=== PATIENT | male | born 1955 | race Caucasian/White ===

== ENCOUNTER 2016-08-15 15:47 | Inpatient (IN) | payer MEDICARE, OTHER ==
--- NOTE | ~2016-08-15 | HP ---
History And Physical [facility] [address] [place]. [address] NAME: BYRON ELIZABETH : 57 STATUS : ADM IN [facility]#: [id number] AGE: 61 ADM/REG DATE : 08/15/16 MR#: [id number] REPORT SERV DATE: 08/15/16 DICTATED BY: MARY SHANNON DATE: 08/15/16 REPORT STATUS : Draft TRANSCRIBED BY: MODL DATE: 08/15/16 DATE OF ADMISSION: 08/15/2016 CHIEF COMPLAINT: Worsening dyspnea. HISTORY OF PRESENTING ILLNESS: Mr. Byron Elizabeth is a 61-year-old male with multiple medical history including heart failure with preserved EF, hypertension, hyperlipidemia, diabetes type 2, morbid obesity, who presented to the hospital as a direct admit from primary care physician's office. The patient was seen by primary care physician today. At the time of presentation, the patient was noted to be hypoxic, saturating at 91% on 6 L of oxygen. He had also noted to have gained 10 pounds from his last visit. On physical exam today, the patient was noted to be severely volume overload. Given these findings, primary care physician transferred the patient over to [facility] for further management. At the time of my evaluation, the patient stated that for the past two weeks he has been having worsening shortness of breath. He states that he becomes dyspneic with minimal exertion. He also stated that he is compliant with his medications. However, he has not had increased urine output despite being compliant with his Lasix. He denies any chest pain, any palpitation. Denies any fever, any chills. He denies any lightheadedness or dizziness. No fevers or chills. REVIEW OF SYSTEMS: A 14-point review of system was performed. All systems were negative except as noted in the HPI. PAST MEDICAL HISTORY: Include heart failure with preserved EF; hypertension; hyperlipidemia; diabetes type 2; GERD; morbid obesity; obstructive sleep apnea; bipolar disorder; coronary artery disease, status post drug-eluting stent placement in the past. FAMILY HISTORY: Significant for diabetes, hypertension, throat cancer, lung cancer, myocardial infarction, elevated cholesterol, and arthritis. The patient states his father of lymphoma at age 73. Mother of cerebral aneurysm at age 83. SOCIAL HISTORY: The patient currently . Lives at home with his . The patient reports a 12-pack year smoking history. He states that he quit smoking at age 82. Denies any illicit drug use. Denies any alcohol use. SURGICAL HISTORY: No significant surgical history. ALLERGIES: THE PATIENT REPORTS NO KNOWN DRUG ALLERGIES. HOME MEDICATIONS: Reviewed and continued. Home medications include aspirin 81 mg p.o. daily, atorvastatin 40 mg p.o. daily, baclofen 10 mg p.o. three times a day, carvedilol 25 mg p.o. daily, Zyrtec 10 mg p.o. twice a day, clonazepam 2 mg p.o. three times a day p.r.n., clonidine 0.2 mg p.o. daily, vitamin B12 of 1000 mg p.o. daily, Nexium 40 mg p.o. twice a day, Lasix 40 mg p.o. twice a day, gabapentin 900 mg p.o. three times a day, insulin 250 units subcu with breakfast and supper and 260 units subcu with lunch, metformin 1000 mg p.o. History And Physical [address] [address] NAME: BYRON ELIZABETH : 57 STATUS : ADM IN PAT#: [id number] AGE: 61 ADM/REG DATE : 08/15/16 MR#: [id number] REPORT SERV DATE: 08/15/16 DICTATED BY: MARY SHANNON DATE: 08/15/16 REPORT STATUS : Draft TRANSCRIBED BY: JAKE DATE: 08/15/16 twice a day, Robaxin 500 mg p.o. three times a day, morphine 30 mg p.o. twice a day, Nystatin one application topically p.r.n., Percocet one tab p.o. four times a day p.r.n., potassium chloride 10 mEq p.o. daily, ranitidine 300 mg p.o. twice a day, trazodone 100 mg p.o. at bedtime, and valsartan 320 mg p.o. daily. LABS: No labs available at this time. ASSESSMENT AND PLAN: 1. Heart failure with preserved ejection fraction, last ejection fraction was 55%. The patient currently decompensated with evidence of volume overload. 2. We will start patient on IV Lasix, strict I's and O's, daily weight. 3. Hypertension, uncontrolled. On presentation, the patient's systolic blood pressure was greater than 190 status post 10 mg IV dose of hydralazine. We will restart the patient on home medications and titrate as needed. 4. Hyperlipidemia. The patient is currently on high-intensity statin therapy. We will continue current management. 5. Diabetes type 2. Per primary care physician, patient controlled on current insulin regimen. We will continue current insulin regimen and obtain A1c. 6. Obstructive sleep apnea. We will place patient on CPAP at bedside. 7. Morbid obesity. BMI 54.4. Of note, the patient does meet criteria given his significant morbid obesity and complications from diabetes. The patient does meet criteria for bariatric surgery evaluation. This should be kept in mind especially in the outpatient setting for the patient to be referred for evaluation and this procedure would help alleviate and improve his morbidity. 8. Code status. The patient will remain full code at this time. 9. DVT prophylaxis. Subcu heparin. JE/MODL Mary Shannon MD / [id number] CC: MD Jennifer Teixeira
--- NOTE | ~2016-08-15 | DS ---
Discharge Summary [facility] [address] [place]. [address] NAME: CARLOS ELIZABETH : 57 STATUS : DIS IN PAT#: [id number] AGE: 61 ADM/REG DATE : 08/15/16 MR#: [id number] REPORT SERV DATE: 08/25/16 DICTATED BY: DATE: REPORT STATUS : Draft TRANSCRIBED BY: MODL DATE: 08/24/16 ADMISSION DATE: 08/15/2016 DISCHARGE DATE: 08/24/2016 DISCHARGE DIAGNOSES: 1. Heart failure with preserved ejection fraction of 55%. 2. CO2 narcosis. 3. Hypoventilation syndrome with obstructive sleep apnea due to morbid obesity with body mass index of 52.4. 4. Acute kidney injury on chronic kidney disease. 5. Hypertension. 6. Diabetes mellitus, type 2. 7. Chronic pain. 8. Anxiety. 9. Hyperlipidemia. PROCEDURES AND IMAGING: On 08/17/2016, CT of the brain without contrast due to change in mental status showed motion degraded exam despite repeated images with no acute intracranial pathology identified. On 08/19/2016, portable chest x-ray showed shallow inspiration, otherwise no acute cardiopulmonary abnormalities. On 08/20/2016, venous Doppler of right upper extremity showed no DVT. On 08/21/2016, portable chest x-ray showed cardiomegaly with shallow inspiration and no acute cardiopulmonary abnormality. HOSPITAL COURSE: This is a 61-year-old white male who was admitted with complaint of worsening shortness of breath. The patient has extensive medical history including morbid obesity, heart failure with preserved ejection fraction, hypertension, hyperlipidemia, and diabetes type 2. Please see admission H and P by Dr. Cox on 08/15/2016. The patient does have a history of use of CPAP, which he was noncompliant with and BiPAP, which he was also noncompliant with. The patient has had a recent sleep study in the last 6 months, and is awaiting arrival of machinery after Medicare approved. The patient has had multiple arterial blood gases with his PCO2 being elevated into the 80s and PO2 in the 50s on O2 at 4 L nasal cannula, and his O2 sat 87.9. The patient then was placed on BiPAP settings of 20 and 8 with a PCO2 of 68 and PO2 of 49, with O2 sat of 83.5. During his stay, the patient has been off and on BiPAP to the point where the patient has now become noncompliant using BiPAP at bedtime and is just using O2 3 to 4 L during the day. The patient's blood sugars have been elevated in the high 300s and low 400s during his stay, and his U-500 insulin has been adjusted to 0.3 mL, which is 150 units at breakfast and lunch, and 0.25 mL, which is 125 units before supper. This is approximately half the dose of what he was using prior to admission. The patient did have acute kidney injury with creatinine elevated to 2.45 and GFR down to 28 during his stay. All kidney impacting drugs were discontinued at that time and has been gradually re-added upon resolution. Acute kidney injury appears to be related to his aggressive diuresis and has slowly resolved after discontinuing medications, and decreasing his Lasix to 20 mg b.i.d. p.o. His current labs: Sodium is 144, potassium is 4.0, chloride is 98, bicarb is 41.4. BUN is 50, creatinine is 1.27, GFR 71, glucose 73, calcium 9.3, magnesium 2.0, WBC 6.1, hemoglobin Discharge Summary [address] [address] NAME: CARLOS ELIZABETH : 57 STATUS : DIS IN PAT#: [id number] AGE: 61 ADM/REG DATE : 08/15/16 MR#: [id number] REPORT SERV DATE: 08/25/16 DICTATED BY: DATE: REPORT STATUS : Draft TRANSCRIBED BY: MODL DATE: 08/24/16 12.0, hematocrit 38.9. His A1c upon admission was 8.5. His BNP upon admission was 68 and his ammonia was 27. The patient's blood pressure has fluctuated from 193/83 and 210/94, down to 93/50. It has stabilized in the last 72 hours between 120 to 160 over 60s to 70s. The patient has had extensive diabetic education as well as his participating. The patient expresses extreme desire to be compliant with his medication and understands that he has been taking half of the dose that he normally takes at home due to his controlled diet. The patient has mentioned that he enjoys going out to eat at buffets frequently and understands that portion control and food choices are important. The patient has been getting out of bed and sitting in the chair with assistance from physical therapy, where the patient now feels comfortable doing it with a walker. During his stay, we have decreased the patient's Neurontin down to 600 mg every 8 hours due to his GFR. The patient's current blood sugars have been 70s, 115, 125, and 147. Extensive discussion was made with Dr. Collins for discharge insulin orders due to the patient's lower insulin needs while in the hospital, and she will follow up with the patient within two weeks. The patient also has expressed a problem with sore mouth, questionable thrush. The patient has been given a Rx for MD Dacosta and has been using it for the last few days while in the hospital with improvement. The patient's anxiety had been well controlled with his clonazepam and has only been using it one to two times a day. PHYSICAL EXAMINATION: VITAL SIGNS: Blood pressure 131/60, O2 saturation 95% on 3 L, temperature 97.9, heart rate is 82, respirations are 18. HEENT: Head is atraumatic, normocephalic. Pupils are equal, round, reactive to light and accommodation. Sclerae are clear and nonicteric. NECK: Supple with no obvious thyromegaly or lymphadenopathy. Neck veins are flat. CARDIAC: S1 and S2 with no obvious murmurs, rubs, or gallops. LUNGS: Clear to auscultation with normal respiratory effort with lung sounds being distant due to large body habitus. ABDOMEN: Soft and nontender with active bowel sounds in all four quadrants. Last bowel movement was 08/23/2016. No palpable organomegaly. The patient has obese abdomen with large pannus. EXTREMITIES: The patient has nonpitting bilateral lower extremity edema with no obvious clubbing or cyanosis. Pulses are present and equal bilaterally. MUSCULOSKELETAL: The patient moves all extremities x4. He is ambulatory with a walker. SKIN: Warm and dry with normal color and turgor. NEUROPSYCH: The patient is alert and oriented x4, pleasant, and cooperative. DISCHARGE DIET: 1800-calorie ADA diet. DISCHARGE MEDICATIONS: Aspirin 81 mg daily; atorvastatin 40 mg daily; Coreg 25 mg twice daily, hold for systolic blood pressure less than 110; vitamin B12, 1000 mcg daily; Lasix 40 mg p.o. twice daily; gabapentin 600 mg three times daily; Humulin R U-500, 0.25 mL, which equals 125 units before supper, insulin U-500 Humulin R 0.3 mL subcu before breakfast and lunch; Zyrtec 10 mg p.o. twice daily; Robaxin 500 mg three times daily; MS Contin 30 mg p.o. twice daily; MD Dacosta Mouthwash 10 mL after meals and at bedtime swish and spit x10 days; [place]-3 fatty acid 1000 mg daily; Nexium 40 mg twice daily; potassium chloride 10 mEq daily; Flomax 0.4 mg daily; trazodone 100 mg daily; Catapres 0.2 mg q.a.m. and 0.4 mg at bedtime, Discharge Summary [facility] [address] [place]. [address] NAME: CARLOS ELIZABETH : 57 STATUS : DIS IN PAT#: [id number] AGE: 61 ADM/REG DATE : 08/15/16 MR#: [id number] REPORT SERV DATE: 08/25/16 DICTATED BY: DATE: REPORT STATUS : Draft TRANSCRIBED BY: MODL DATE: 08/24/16 hold if systolic blood pressure less than 110; Diovan 320 mg daily; Combivent Respimat inhaled q.6 hours p.r.n. shortness of breath; Nitrostat 0.4 mg sublingually p.r.n. chest pain; clonazepam 2 mg three times daily p.r.n. anxiety; nystatin powder p.r.n. to groin and under arm rash; Percocet 10/325 four times a day as needed for pain; omeprazole 20 mg twice daily. ALLERGIES: THE PATIENT HAS NO KNOWN DRUG ALLERGIES. DISCHARGE INSTRUCTIONS: The patient is to follow up with his PCP, Dr. Jennifer Persaud in 7 [address] Dr. Sainz with [facility], next week on . Dr. Collins's office with [facility] will be calling him Saturday with an appointment within the next 2 weeks. Should the patient have any more difficulty with shortness of breath or any other severe symptoms, he is to call his PCP or present to the ER. About 45 minutes has been spent coordinating discharge care of this patient including face- to-face encounter and summarization of the discharge. AURA/MODL Liliana Mcghee NP / [id number] CC: MD SELENA Herrera TRACY
--- NOTE | ~2016-08-15 | PUL ---
[facility] [address] [place]. [address] NAME: CARLOS ELIZABETH : 57 STATUS : DIS IN PAT#: [id number] AGE: 61 ADM/REG DATE : 08/15/16 MR#: [id number] REPORT SERV DATE: 08/24/16 DICTATED BY: LALY SEGURA DATE: 08/24/16 REPORT STATUS : Draft TRANSCRIBED BY: MODL DATE: 08/24/16 PULMONARY FUNCTION TEST START DATE OF TESTIN08/21/2016 END DATE OF TESTIN08/22/2016 COMMENTS: Per respiratory therapy, study conducted with the patient breathing supplemental oxygen at a flow rate of 3 L/minute. RN increased oxygen to 4 L/minute and then back to 3 L/minute. (Per available information), this study was conducted primarily while the patient was breathing supplemental oxygen at a flow rate of 3 L/minute. RESULTS: Total valid sampling time 7 hours 8 minutes and 27 seconds. Total time with an oxygen saturation less than 88%, 0. Oxygen desaturation event index 0.7. IMPRESSION: There was no significant desaturation during this study conducted primarily with the patient breathing supplemental oxygen at a flow rate of 3 L/minute. The oxygen desaturation event index was normal. PS/JAKE Laly Segura M.D. / [id number] CC: Joey Mtz MD
--- NOTE | ~2016-08-15 | HP ---
History And Physical [facility] [address] [place]. [address] NAME: CARLOS ELIZABETH : 57 STATUS : ADM IN [facility]#: [id number] AGE: 61 ADM/REG DATE : 08/15/16 MR#: [id number] REPORT SERV DATE: 08/15/16 DICTATED BY: MARY SHANNON DATE: 08/15/16 REPORT STATUS : Draft TRANSCRIBED BY: MODL DATE: 08/15/16 DATE OF ADMISSION: 08/15/2016 CHIEF COMPLAINT: Worsening dyspnea. HISTORY OF PRESENT ILLNESS: The patient is a 61-year-old male with multiple medical history including heart failure with preserved EF, hypertension, hyperlipidemia, diabetes type 2, morbid obesity, who presented to his physician's office secondary to worsening dyspnea. The patient was directly transferred to [facility] from physician's office for further management. History obtained from the patient and . The patient states that over the past few weeks he has noticed decreased exercise tolerance, reporting becoming dyspneic with minimal exertion, states that his symptoms progressively worsened. Upon presentation to his doctor's office today, the patient was noted to have low O2 saturation and noted to be in severe volume overload. The patient was therefore transferred to [facility] for further management. At the time of my evaluation of the patient, the patient states that he is compliant with his medications. He is on Lasix which he takes, but he states that he has not had any increase urinary output recently on his Lasix dose. He also stated increased exercise intolerance stating that he is unable to essentially walk that he ambulates using a wheelchair. He denied any sick contacts. No lightheadedness or dizziness. No fevers. No chills. Other than THE severe shortness of breath, he also complained of symptoms consistent with diabetic neuropathy. REVIEW OF SYSTEMS: A 14-point review of system was performed. All systems were negative except as noted in the HPI. PAST MEDICAL HISTORY: 1. Heart failure with reduced EF. 2. Obstructive sleep apnea. 3. Bipolar disorder disease. 4. GERD. 5. Coronary artery disease, status post stent placement in 2011. 6. Morbid obesity. 7. Diabetes. 8. Hypertension. 9. Hyperlipidemia. FAMILY HISTORY: Significant for: 1. Diabetes. 2. Hypertension. 3. Throat cancer. 4. Lung cancer. 5. Hyperlipidemia. 6. Myocardial infarction. FAMILY HISTORY: The patient states that father from lymphoma at age 73. Mother History And Physical [address] [place]. [address] NAME: CARLOS ELIZABETH : 57 STATUS : ADM IN [facility]#: [id number] AGE: 61 ADM/REG DATE : 08/15/16 MR#: [id number] REPORT SERV DATE: 08/15/16 DICTATED BY: MARY SHANNON DATE: 08/15/16 REPORT STATUS : Draft TRANSCRIBED BY: JAKE DATE: 08/15/16 from a cerebral aneurysm at age 84. SOCIAL HISTORY: The patient is currently , lives at home with his , has one adopted son in group home. He is a former smoker, reports a 12 pack year smoking history, quit at age 22. He denies any alcohol use or any illicit drug use. ALLERGIES: THE PATIENT HAS NO KNOWN DRUG ALLERGIES. PAST SURGICAL HISTORY: No significant surgical history. HOME MEDICATIONS: 1. Aspirin 81 mg p.o. daily. 2. Atorvastatin 40 mg p.o. daily. 3. Baclofen 10 mg p.o. three times a day. 4. Coreg 25 mg p.o. twice a day. 5. Zyrtec 10 mg p.o. twice a day. 6. Clonazepam 2 mg p.o. three times a day p.r.n. for anxiety. 7. Clonidine 0.2 mg p.o. daily. 8. Clonidine 0.4 mg p.o. at bedtime. 9. Vitamin B12 1000 mcg p.o. daily. 10.Nexium 40 mg p.o. twice a day. 11.Lasix 40 mg p.o. twice a day. 12.Gabapentin 900 mg p.o. three times daily. 13.Concentrated insulin 250 units subcu with breakfast and supper. 14.Concentrated insulin 260 units subcu with lunch. 15.Metformin 1000 mg p.o. twice a day. 16.Robaxin 500 mg p.o. three times a day. 17.Morphine 30 mg p.o. twice a day. 18.Nitroglycerin 0.4 mg subcu p.r.n. 19.Potassium chloride 10 mEq p.o. daily. 20.Zantac 300 mg p.o. twice a day. 21.Trazodone 100 mg p.o. at bedtime. 22.Percocet one tab p.o. four times a day p.r.n. 23.Nystatin Powder one application topically daily p.r.n. 24.Valsartan 320 mg p.o. daily. DICTATION ENDS HERE MERVAT/JAKE Mary Shannon MD / [id number] History And Physical [address] [address] NAME: CARLOS ELIZABETH : 57 STATUS : ADM IN [facility]#: [id number] AGE: 61 ADM/REG DATE : 08/15/16 MR#: [id number] REPORT SERV DATE: 08/15/16 DICTATED BY: MARY SHANNON DATE: 08/15/16 REPORT STATUS : Draft TRANSCRIBED BY: JAKE DATE: 08/15/16 CC: MD Jennifer Teixeira MD
[~2016-08-15 15:47] MED LIST: ALEVE220 MG PO; AMB10 PO; AMLODIPINE BESYLATE PO; ASAB PO; CARDURA1 MG PO; CAT1 PO; COREG12 PO; COREG25 PO; CYANO1000T PO; DEMA20 PO; DEPAKOTEER PO; DIOV160 PO; DSS PO; EFFIENT10 PO; ELIQUIS 5 MG TAB5 MG PO; ENDOCET1 TA3 PO; FISH-EPA1000 MG PO; GENERLAC PO; GLUCOPHAGE1000 MG PO; HUMULIN R U-500 SC; HUMULIN R500 UNIT/1 SC; HUMULIN500CONC SC; KLONO1 PO; KLOR-CON 1010 MEQ PO; KLOR-CON M1010 MEQ PO; L40 PO; LEVEMIR SC; LIOR10 PO; LIPITOR40 PO; LOFIBRA160 MG PO; LOP25 PO; LORTAB10 PO; MAGOX4 PO; METHOC500B PO; MIRALAXPKT PO; MSIMMR15 PO; NEUR300 PO; NEXIUM40 PO; NITROSTAT0.4 MG SL; NOVOLOG SC; NYSTOP100000 MG TOP; OXYCOD PO; PENNSAID; PERCOCET1 TA4 PO; RANITIDINE300 MG PO; SENTAB PO; SYMBICORT 160/41 INH INH; TRAZ100 PO; TRAZODONE150 MG PO; TRICOR48 PO; VENTOLIN HFA INH; VITAMIN D2000 UNIT PO; VITAMIN D31000 UNIT PO; ZYRTEC ALLGY10 MG PO
[2016-08-15] MEDS ORDERED: ZANTAC300 MG PO (16:54)
[2016-08-15] MEDS ORDERED: NEXIUM40 PO (16:54)
[2016-08-15] MEDS ORDERED: ASAB PO (16:54)
[2016-08-15] MEDS ORDERED: COMBIVENT RESPIM4 GM PO (16:54)
[2016-08-15] MEDS ORDERED: NITROSTAT0.4 MG SL (16:55)
[2016-08-15] MEDS ORDERED: FISH-EPA1000 MG PO (16:55)
[2016-08-15] MEDS ORDERED: NEUR300 PO (16:55)
[2016-08-15] MEDS ORDERED: HUMULIN500CONC SC ×2 (16:57→16:58)
[2016-08-15] MEDS ORDERED: KLOR-CON M1010 MEQ PO (16:59)
[2016-08-15] MEDS ORDERED: COREG25 PO (16:59)
[2016-08-15] MEDS ORDERED: GLUCOPHAGE1000 MG PO (16:59)
[2016-08-15] MEDS ORDERED: CAT2 PO ×2 (17:00)
[2016-08-15] MEDS ORDERED: KLONO2 PO (17:00)
[2016-08-15] MEDS ORDERED: LIOR10 PO (17:01)
[2016-08-15] MEDS ORDERED: TRAZ100 PO (17:01)
[2016-08-15] MEDS ORDERED: NYSTATPOW TOP (17:01)
[2016-08-15] MEDS ORDERED: METHOC500B PO (17:01)
[2016-08-15] MEDS ORDERED: PERCOCET 10/3251 TAB PO (17:02)
[2016-08-15] MEDS ORDERED: DIOVAN320 MG PO (17:02)
[2016-08-15] MEDS ORDERED: MSCONTIN PO (17:02)
[2016-08-15] MEDS ORDERED: ZYRTEC ALLGY10 MG PO (17:02)
[2016-08-15] MEDS ORDERED: LIPITOR40 PO (17:03)
[2016-08-15] MEDS ORDERED: CYANO1000T PO (17:03)
[2016-08-15] MEDS ORDERED: L40 PO (17:03)
[2016-08-15 21:48] LABS: BASOPHILS 0.4 %; BASOPHILS ABSOLUTE 0.03 10/3/uL (0.0-0.16); EOSINOPHILS 2.9 %; EOSINOPHILS ABSOLUTE 0.21 10/3/uL (0.0-0.53); HEMATOCRIT 34.7 % (40.0-51.0); HEMOGLOBIN 10.6 g/dL (13.6-17.8); IMMATURE GRANULOCYTES 0.5 %; IMMATURE GRANULOCYTES ABSOLUTE 0.04 10/3/uL (0.0-0.11); LYMPHOCYTES 15.4 %; LYMPHOCYTES ABSOLUTE 1.13 10/3/uL (0.67-4.30); MEAN CORPUS HGB CONC 30.5 g/dL (32.0-36.0); MEAN CORPUSCULAR HEMOGLOB 26.7 pg (26.0-34.0); MEAN CORPUSCULAR VOLUME 87.4 fL (80-100); MEAN PLATELET VOLUME 10.2 fL (9.2-13.0); MONOCYTES 10.1 %; MONOCYTES ABSOLUTE 0.74 10/3/uL (0.21-1.20); NEUTROPHILS 70.7 %; NEUTROPHILS ABSOLUTE 5.19 10/3/uL (2.02-8.40); PLATELET COUNT 230 10/3/uL (150-400); RBC DISTRIBUTION WIDTH 14.3 % (12.0-16.0); RED CELL COUNT 3.97 10/6/uL (4.7-6.1)
[2016-08-15 21:50] LABS: MANUAL DIFF NO %; WHITE BLOOD CELLS 7.3 10/3/uL (4.5-10.5)
[2016-08-15 22:11] LABS: A/G RATIO 0.9 (0.7-1.9); ALBUMIN 3.2 G/DL (3.5-5.0); BUN (BLOOD UREA NITROGEN) 25 MG/DL (6-23); CALCIUM, SERUM 8.8 MG/DL (8.5-10.4); CHLORIDE, SERUM 95 MMOL/L (96-112); CO2 (CARBON DIOXIDE) 37 MMOL/L (24-34); CREATININE 1.24 MG/DL (0.70-1.30); FREE T4 1.27 NG/DL (0.76-1.46); GFR AFRICAN AMERICAN 73 ML/MIN (>=60); GFR NON AFRICAN AMERICAN 63 ML/MIN (>=60); GLOBULIN 3.5 G/DL (2.5-4.1); GLUCOSE, SERUM 269 MG/DL (60-99); PHOSPHORUS, SERUM 2.3 MG/DL (2.5-4.5); POTASSIUM, SERUM 4.1 MMOL/L (3.5-5.3); SGOT(AST) 18 U/L (5-40); SGPT(ALT) 26 U/L (5-65); SODIUM, SERUM 139 MMOL/L (135-148); TOTAL BILIRUBIN 0.7 MG/DL (0-1.2); TOTAL PROTEIN 6.7 G/DL (6.0-8.5); ULTRASENSITIVE TSH 0.604 MCIU/ML (0.358-3.740)
[2016-08-15 22:12] LABS: ALKALINE PHOSPHATASE 88 U/L (45-117)
[2016-08-16 05:57] LABS: HEMOGLOBIN 10.4 g/dL (13.6-17.8); MEAN CORPUS HGB CONC 31.5 g/dL (32.0-36.0); MEAN CORPUSCULAR HEMOGLOB 27.3 pg (26.0-34.0); MEAN CORPUSCULAR VOLUME 86.6 fL (80-100); MEAN PLATELET VOLUME 11.2 fL (9.2-13.0); PLATELET COUNT 273 10/3/uL (150-400); RBC DISTRIBUTION WIDTH 14.6 % (12.0-16.0); RED CELL COUNT 3.81 10/6/uL (4.7-6.1); WHITE BLOOD CELLS 5.2 10/3/uL (4.5-10.5)
[2016-08-16 06:04] LABS: MANUAL DIFF YES %
[2016-08-16 06:53] LABS: BAND NEUTROPHILS 3 %; BASOPHILS 1 %; BASOPHILS ABSOLUTE (CALC) 0.05 10/3/uL (0.0-0.16); EOSINOPHILS 1 %; EOSINOPHILS ABSOLUTE (CALC) 0.05 10/3/uL (0.0-0.53); LYMPHOCYTES 20 %; LYMPHOCYTES ABSOLUTE (CALC) 1.04 10/3/uL (0.67-4.30); MONOCYTES 3 %; MONOCYTES ABSOLUTE (CALC) 0.16 10/3/uL (0.21-1.20); PLATELET ESTIMATE ADQ (ADEQUATE); POLYCHROMASIA 1+ (2-5/OIF) (0-1/OIF); SEGMENTED NEUTROPHIL (0) 72 %; TOTAL NUCLEATED CELLS 100
[2016-08-16 07:32] LABS: CALCIUM, SERUM 8.5 MG/DL (8.5-10.4); CHLORIDE, SERUM 90 MMOL/L (96-112); POTASSIUM, SERUM 4.1 MMOL/L (3.5-5.3); SODIUM, SERUM 138 MMOL/L (135-148)
[2016-08-16 08:03] LABS: ALBUMIN 3.1 G/DL (3.5-5.0); ALKALINE PHOSPHATASE 84 U/L (45-117); BUN (BLOOD UREA NITROGEN) 25 MG/DL (6-23); CO2 (CARBON DIOXIDE) 39 MMOL/L (24-34); CREATININE 1.18 MG/DL (0.70-1.30); GFR AFRICAN AMERICAN 77 ML/MIN (>=60); GFR NON AFRICAN AMERICAN 67 ML/MIN (>=60); GLOBULIN 3.2 G/DL (2.5-4.1); GLUCOSE, SERUM 303 MG/DL (60-99); SGOT(AST) 17 U/L (5-40); SGPT(ALT) 26 U/L (5-65); TOTAL BILIRUBIN 0.8 MG/DL (0-1.2); TOTAL PROTEIN 6.3 G/DL (6.0-8.5)
[2016-08-16 13:18] LABS: GLYCOHEMOGLOBIN (HbA1c) 8.5 % (4.7-6.1)
[2016-08-17 05:05] LABS: BASOPHILS 0.4 %; BASOPHILS ABSOLUTE 0.03 10/3/uL (0.0-0.16); EOSINOPHILS 2.7 %; EOSINOPHILS ABSOLUTE 0.22 10/3/uL (0.0-0.53); HEMATOCRIT 35.5 % (40.0-51.0); IMMATURE GRANULOCYTES 0.4 %; IMMATURE GRANULOCYTES ABSOLUTE 0.03 10/3/uL (0.0-0.11); LYMPHOCYTES 16.3 %; LYMPHOCYTES ABSOLUTE 1.33 10/3/uL (0.67-4.30); MEAN CORPUSCULAR HEMOGLOB 27.5 pg (26.0-34.0); MEAN CORPUSCULAR VOLUME 88.8 fL (80-100); MEAN PLATELET VOLUME 10.3 fL (9.2-13.0); NEUTROPHILS 69.2 %; NEUTROPHILS ABSOLUTE 5.64 10/3/uL (2.02-8.40); PLATELET COUNT 204 10/3/uL (150-400); RBC DISTRIBUTION WIDTH 14.5 % (12.0-16.0)
[2016-08-17 05:10] LABS: MANUAL DIFF NO %; WHITE BLOOD CELLS 8.2 10/3/uL (4.5-10.5)
[2016-08-17 05:15] LABS: A/G RATIO 0.9 (0.7-1.9); ALKALINE PHOSPHATASE 79 U/L (45-117); CALCIUM, SERUM 8.7 MG/DL (8.5-10.4); CHLORIDE, SERUM 91 MMOL/L (96-112); CO2 (CARBON DIOXIDE) 39 MMOL/L (24-34); CREATININE 1.48 MG/DL (0.70-1.30); GFR AFRICAN AMERICAN 59 ML/MIN (>=60); GFR NON AFRICAN AMERICAN 51 ML/MIN (>=60); GLOBULIN 3.3 G/DL (2.5-4.1); POTASSIUM, SERUM 4.2 MMOL/L (3.5-5.3); SGOT(AST) 18 U/L (5-40); SGPT(ALT) 26 U/L (5-65); SODIUM, SERUM 141 MMOL/L (135-148); TOTAL PROTEIN 6.3 G/DL (6.0-8.5)
[2016-08-17 05:23] LABS: BUN (BLOOD UREA NITROGEN) 31 MG/DL (6-23); GLUCOSE, SERUM 201 MG/DL (60-99)
[2016-08-18 06:35] LABS: BASOPHILS 0.1 %; BASOPHILS ABSOLUTE 0.01 10/3/uL (0.0-0.16); EOSINOPHILS 2.3 %; HEMATOCRIT 37.8 % (40.0-51.0); HEMOGLOBIN 11.4 g/dL (13.6-17.8); IMMATURE GRANULOCYTES 0.3 %; IMMATURE GRANULOCYTES ABSOLUTE 0.03 10/3/uL (0.0-0.11); LYMPHOCYTES 14.8 %; LYMPHOCYTES ABSOLUTE 1.28 10/3/uL (0.67-4.30); MEAN CORPUS HGB CONC 30.2 g/dL (32.0-36.0); MEAN CORPUSCULAR HEMOGLOB 27.2 pg (26.0-34.0); MEAN CORPUSCULAR VOLUME 90.2 fL (80-100); MEAN PLATELET VOLUME 10.4 fL (9.2-13.0); MONOCYTES 11.7 %; MONOCYTES ABSOLUTE 1.01 10/3/uL (0.21-1.20); NEUTROPHILS 70.8 %; PLATELET COUNT 210 10/3/uL (150-400); RBC DISTRIBUTION WIDTH 14.7 % (12.0-16.0); RED CELL COUNT 4.19 10/6/uL (4.7-6.1); WHITE BLOOD CELLS 8.6 10/3/uL (4.5-10.5)
[2016-08-18 06:41] LABS: MANUAL DIFF NO %
[2016-08-18 06:46] LABS: A/G RATIO 0.8 (0.7-1.9); ALBUMIN 2.9 G/DL (3.5-5.0); ALKALINE PHOSPHATASE 83 U/L (45-117); CALCIUM, SERUM 8.6 MG/DL (8.5-10.4); CHLORIDE, SERUM 93 MMOL/L (96-112); CO2 (CARBON DIOXIDE) 40 MMOL/L (24-34); GLOBULIN 3.7 G/DL (2.5-4.1); GLUCOSE, SERUM 201 MG/DL (60-99); POTASSIUM, SERUM 4.3 MMOL/L (3.5-5.3); SGOT(AST) 12 U/L (5-40); SGPT(ALT) 21 U/L (5-65); SODIUM, SERUM 139 MMOL/L (135-148); TOTAL PROTEIN 6.6 G/DL (6.0-8.5)
[2016-08-18 06:47] LABS: BUN (BLOOD UREA NITROGEN) 46 MG/DL (6-23); CREATININE 2.41 MG/DL (0.70-1.30); GFR AFRICAN AMERICAN 33 ML/MIN (>=60); GFR NON AFRICAN AMERICAN 28 ML/MIN (>=60); TOTAL BILIRUBIN 1.6 MG/DL (0-1.2)
[2016-08-18 08:07] LABS: BE (BASE EXCESS) 15.4 MEQ/L (0 +/- 2.5); CARBOXYHEMOGLOBIN 1.8 % (0-3); HCO3 (ACTUAL BICARBONATE) 44.6 MEQ/L (23-27); HEMOBLOGIN CONTENT 11.8 G/DL (14-18); INSTRUMENT SERIAL # 8083; METHEMOGLOBIN 0.3 % (0-3); O2 CONTENT 14.3 VOL% (18-24); PCO2 (CO2 TENSION) 83 MMHG (35-45); PO2 (O2 TENSION) 58 MMHG (79-93); pH 7.35 (7.37-7.43)
[2016-08-18 08:08] LABS: ALLENS TEST Pos; OPERATOR ID 14472; SAMPLE Arterial
[2016-08-18 10:39] LABS: ALLENS TEST Pos; BE (BASE EXCESS) 16.3 MEQ/L (0 +/- 2.5); BIPAP 20/8 cm.H2O; HCO3 (ACTUAL BICARBONATE) 43.7 MEQ/L (23-27); HEMOBLOGIN CONTENT 11.8 G/DL (14-18); INSTRUMENT SERIAL # 8083; METHEMOGLOBIN 0.3 % (0-3); O2 CONTENT 13.5 VOL% (18-24); OPERATOR ID 14472; PCO2 (CO2 TENSION) 68 MMHG (35-45); PO2 (O2 TENSION) 49 MMHG (79-93); SAMPLE Arterial; pH 7.43 (7.37-7.43)
[2016-08-18 17:56] LABS: ALLENS TEST Pos; BE (BASE EXCESS) 16.8 MEQ/L (0 +/- 2.5); BIPAP 20/8 cm.H2O; CARBOXYHEMOGLOBIN 1.5 % (0-3); HCO3 (ACTUAL BICARBONATE) 43.2 MEQ/L (23-27); HEMOBLOGIN CONTENT 11.5 G/DL (14-18); INSTRUMENT SERIAL # 8083; METHEMOGLOBIN 0.3 % (0-3); O2 CONTENT 14.7 VOL% (18-24); OPERATOR ID 14472; PCO2 (CO2 TENSION) 62 MMHG (35-45); PO2 (O2 TENSION) 65 MMHG (79-93); SAMPLE Arterial; pH 7.46 (7.37-7.43)
[2016-08-18 21:22] LABS: ASCORBIC ACID (UR NOT ORDER) NEG (NEG); BILIRUBIN, URINE NEGATIVE (NEG); KETONE, URINE NEGATIVE (NEG); LEUKOCYTE ESTERASE(NOT OR NEG (NEG); WBC (NOT ORDERED) (RFLEX) 4 (0-5)
[2016-08-19 05:37] LABS: ALLENS TEST Pos; BE (BASE EXCESS) 16.2 MEQ/L (0 +/- 2.5); BIPAP 20/8 cm.H2O; CARBOXYHEMOGLOBIN 1.4 % (0-3); HCO3 (ACTUAL BICARBONATE) 42.7 MEQ/L (23-27); INSTRUMENT SERIAL # 8083; METHEMOGLOBIN 0.3 % (0-3); O2 CONTENT 15.6 VOL% (18-24); OPERATOR ID 334499; PCO2 (CO2 TENSION) 61 MMHG (35-45); PO2 (O2 TENSION) 72 MMHG (79-93); SAMPLE Arterial; pH 7.46 (7.37-7.43)
[2016-08-19 05:59] LABS: BASOPHILS 0.1 %; BASOPHILS ABSOLUTE 0.01 10/3/uL (0.0-0.16); EOSINOPHILS 0.7 %; EOSINOPHILS ABSOLUTE 0.05 10/3/uL (0.0-0.53); HEMATOCRIT 37.7 % (40.0-51.0); HEMOGLOBIN 11.8 g/dL (13.6-17.8); IMMATURE GRANULOCYTES 0.6 %; IMMATURE GRANULOCYTES ABSOLUTE 0.04 10/3/uL (0.0-0.11); LYMPHOCYTES 7.7 %; LYMPHOCYTES ABSOLUTE 0.53 10/3/uL (0.67-4.30); MEAN CORPUS HGB CONC 31.3 g/dL (32.0-36.0); MEAN CORPUSCULAR HEMOGLOB 27.4 pg (26.0-34.0); MEAN CORPUSCULAR VOLUME 87.7 fL (80-100); MEAN PLATELET VOLUME 10.2 fL (9.2-13.0); MONOCYTES 6.4 %; MONOCYTES ABSOLUTE 0.44 10/3/uL (0.21-1.20); NEUTROPHILS 84.5 %; NEUTROPHILS ABSOLUTE 5.84 10/3/uL (2.02-8.40); PLATELET COUNT 217 10/3/uL (150-400); RBC DISTRIBUTION WIDTH 14.3 % (12.0-16.0); WHITE BLOOD CELLS 6.9 10/3/uL (4.5-10.5)
[2016-08-19 06:00] LABS: MANUAL DIFF NO %
[2016-08-19 06:16] LABS: A/G RATIO 0.8 (0.7-1.9); ALBUMIN 3.1 G/DL (3.5-5.0); ALKALINE PHOSPHATASE 90 U/L (45-117); BUN (BLOOD UREA NITROGEN) 45 MG/DL (6-23); CALCIUM, SERUM 8.9 MG/DL (8.5-10.4); CHLORIDE, SERUM 98 MMOL/L (96-112); CO2 (CARBON DIOXIDE) 35 MMOL/L (24-34); GFR AFRICAN AMERICAN 63 ML/MIN (>=60); GFR NON AFRICAN AMERICAN 54 ML/MIN (>=60); GLOBULIN 3.7 G/DL (2.5-4.1); GLUCOSE, SERUM 318 MG/DL (60-99); POTASSIUM, SERUM 4.5 MMOL/L (3.5-5.3); SGPT(ALT) 18 U/L (5-65); SODIUM, SERUM 142 MMOL/L (135-148); TOTAL BILIRUBIN 1.5 MG/DL (0-1.2); TOTAL PROTEIN 6.8 G/DL (6.0-8.5)
[2016-08-19 06:17] LABS: SGOT(AST) 15 U/L (5-40)
[2016-08-20 05:18] LABS: BASOPHILS 0.4 %; BASOPHILS ABSOLUTE 0.03 10/3/uL (0.0-0.16); HEMATOCRIT 35.5 % (40.0-51.0); HEMOGLOBIN 11.1 g/dL (13.6-17.8); IMMATURE GRANULOCYTES 0.3 %; IMMATURE GRANULOCYTES ABSOLUTE 0.02 10/3/uL (0.0-0.11); LYMPHOCYTES 14.6 %; LYMPHOCYTES ABSOLUTE 0.98 10/3/uL (0.67-4.30); MEAN CORPUS HGB CONC 31.3 g/dL (32.0-36.0); MEAN CORPUSCULAR HEMOGLOB 27.3 pg (26.0-34.0); MEAN CORPUSCULAR VOLUME 87.4 fL (80-100); MEAN PLATELET VOLUME 9.9 fL (9.2-13.0); MONOCYTES 11.4 %; MONOCYTES ABSOLUTE 0.77 10/3/uL (0.21-1.20); NEUTROPHILS 70.3 %; NEUTROPHILS ABSOLUTE 4.73 10/3/uL (2.02-8.40); PLATELET COUNT 213 10/3/uL (150-400); RED CELL COUNT 4.06 10/6/uL (4.7-6.1); WHITE BLOOD CELLS 6.7 10/3/uL (4.5-10.5)
[2016-08-20 05:19] LABS: MANUAL DIFF NO %
[2016-08-20 05:35] LABS: A/G RATIO 0.7 (0.7-1.9); ALBUMIN 2.8 G/DL (3.5-5.0); ALKALINE PHOSPHATASE 79 U/L (45-117); CALCIUM, SERUM 8.9 MG/DL (8.5-10.4); CHLORIDE, SERUM 96 MMOL/L (96-112); CO2 (CARBON DIOXIDE) 37 MMOL/L (24-34); CREATININE 1.18 MG/DL (0.70-1.30); GFR AFRICAN AMERICAN 77 ML/MIN (>=60); GFR NON AFRICAN AMERICAN 67 ML/MIN (>=60); GLOBULIN 3.9 G/DL (2.5-4.1); GLUCOSE, SERUM 317 MG/DL (60-99); POTASSIUM, SERUM 3.7 MMOL/L (3.5-5.3); SGOT(AST) 12 U/L (5-40); SGPT(ALT) 16 U/L (5-65); SODIUM, SERUM 142 MMOL/L (135-148); TOTAL BILIRUBIN 1.4 MG/DL (0-1.2); TOTAL PROTEIN 6.7 G/DL (6.0-8.5)
[2016-08-20 05:38] LABS: BUN (BLOOD UREA NITROGEN) 34 MG/DL (6-23)
[2016-08-20 10:04] LABS: ALLENS TEST Pos; BE (BASE EXCESS) 11.5 MEQ/L (0 +/- 2.5); CARBOXYHEMOGLOBIN 1.4 % (0-3); DEVICE NC; HCO3 (ACTUAL BICARBONATE) 35.6 MEQ/L (23-27); HEMOBLOGIN CONTENT 12.3 G/DL (14-18); INSTRUMENT SERIAL # 8083; METHEMOGLOBIN 0.3 % (0-3); O2 CONTENT 15.3 VOL% (18-24); PCO2 (CO2 TENSION) 45 MMHG (35-45); PO2 (O2 TENSION) 60 MMHG (79-93); SAMPLE Arterial; pH 7.52 (7.37-7.43)
[2016-08-21 04:06] LABS: ALLENS TEST Pos; BE (BASE EXCESS) 13.7 MEQ/L (0 +/- 2.5); CARBOXYHEMOGLOBIN 0.6 % (0-3); DEVICE NC; HCO3 (ACTUAL BICARBONATE) 41.4 MEQ/L (23-27); HEMOBLOGIN CONTENT 11.2 G/DL (14-18); INSTRUMENT SERIAL # 8083; METHEMOGLOBIN 0.3 % (0-3); OPERATOR ID 35190; PCO2 (CO2 TENSION) 71 MMHG (35-45); PO2 (O2 TENSION) 89 MMHG (79-93); SAMPLE Arterial; pH 7.38 (7.37-7.43)
[2016-08-21 05:41] LABS: BASOPHILS 0.2 %; BASOPHILS ABSOLUTE 0.02 10/3/uL (0.0-0.16); EOSINOPHILS 4.6 %; EOSINOPHILS ABSOLUTE 0.41 10/3/uL (0.0-0.53); HEMOGLOBIN 11.2 g/dL (13.6-17.8); IMMATURE GRANULOCYTES 0.2 %; IMMATURE GRANULOCYTES ABSOLUTE 0.02 10/3/uL (0.0-0.11); LYMPHOCYTES 17.8 %; LYMPHOCYTES ABSOLUTE 1.59 10/3/uL (0.67-4.30); MEAN CORPUS HGB CONC 30.3 g/dL (32.0-36.0); MEAN CORPUSCULAR VOLUME 89.2 fL (80-100); MEAN PLATELET VOLUME 10.3 fL (9.2-13.0); MONOCYTES 14.1 %; MONOCYTES ABSOLUTE 1.26 10/3/uL (0.21-1.20); NEUTROPHILS 63.1 %; NEUTROPHILS ABSOLUTE 5.64 10/3/uL (2.02-8.40); PLATELET COUNT 220 10/3/uL (150-400); RBC DISTRIBUTION WIDTH 14.6 % (12.0-16.0); RED CELL COUNT 4.15 10/6/uL (4.7-6.1); WHITE BLOOD CELLS 8.9 10/3/uL (4.5-10.5)
[2016-08-21 05:43] LABS: MANUAL DIFF NO %
[2016-08-21 10:02] LABS: POTASSIUM, SERUM 3.8 MMOL/L (3.5-5.3); SGOT(AST) 15 U/L (5-40); SGPT(ALT) 16 U/L (5-65); SODIUM, SERUM 143 MMOL/L (135-148)
[2016-08-21 12:35] LABS: A/G RATIO 0.9 (0.7-1.9); ALBUMIN 3.2 G/DL (3.5-5.0); ALKALINE PHOSPHATASE 79 U/L (45-117); CALCIUM, SERUM 8.8 MG/DL (8.5-10.4); CHLORIDE, SERUM 99 MMOL/L (96-112); CO2 (CARBON DIOXIDE) 39 MMOL/L (24-34); GLOBULIN 3.7 G/DL (2.5-4.1); TOTAL PROTEIN 6.9 G/DL (6.0-8.5)
[2016-08-21 12:41] LABS: BUN (BLOOD UREA NITROGEN) 51 MG/DL (6-23); CREATININE 2.19 MG/DL (0.70-1.30); GFR AFRICAN AMERICAN 37 ML/MIN (>=60); GFR NON AFRICAN AMERICAN 32 ML/MIN (>=60); GLUCOSE, SERUM 106 MG/DL (60-99); TOTAL BILIRUBIN 0.9 MG/DL (0-1.2)
[2016-08-21 16:42] LABS: CALCIUM, SERUM 8.6 MG/DL (8.5-10.4); CHLORIDE, SERUM 98 MMOL/L (96-112); CO2 (CARBON DIOXIDE) 35 MMOL/L (24-34); CREATININE 2.42 MG/DL (0.70-1.30); GFR AFRICAN AMERICAN 32 ML/MIN (>=60); GFR NON AFRICAN AMERICAN 28 ML/MIN (>=60); POTASSIUM, SERUM 3.9 MMOL/L (3.5-5.3); SODIUM, SERUM 141 MMOL/L (135-148)
[2016-08-21 16:44] LABS: BUN (BLOOD UREA NITROGEN) 61 MG/DL (6-23); GLUCOSE, SERUM 204 MG/DL (60-99)
[2016-08-22 04:56] LABS: BASOPHILS 0.3 %; BASOPHILS ABSOLUTE 0.02 10/3/uL (0.0-0.16); EOSINOPHILS ABSOLUTE 0.31 10/3/uL (0.0-0.53); HEMATOCRIT 35.9 % (40.0-51.0); IMMATURE GRANULOCYTES 0.1 %; IMMATURE GRANULOCYTES ABSOLUTE 0.01 10/3/uL (0.0-0.11); LYMPHOCYTES 18.9 %; LYMPHOCYTES ABSOLUTE 1.47 10/3/uL (0.67-4.30); MANUAL DIFF NO %; MEAN CORPUS HGB CONC 30.6 g/dL (32.0-36.0); MEAN CORPUSCULAR HEMOGLOB 27.6 pg (26.0-34.0); MEAN CORPUSCULAR VOLUME 90.2 fL (80-100); MEAN PLATELET VOLUME 10.3 fL (9.2-13.0); MONOCYTES 11.8 %; MONOCYTES ABSOLUTE 0.92 10/3/uL (0.21-1.20); NEUTROPHILS 64.9 %; NEUTROPHILS ABSOLUTE 5.05 10/3/uL (2.02-8.40); PLATELET COUNT 229 10/3/uL (150-400); RBC DISTRIBUTION WIDTH 14.6 % (12.0-16.0); RED CELL COUNT 3.98 10/6/uL (4.7-6.1); WHITE BLOOD CELLS 7.8 10/3/uL (4.5-10.5)
[2016-08-22 05:19] LABS: CALCIUM, SERUM 8.8 MG/DL (8.5-10.4); CHLORIDE, SERUM 101 MMOL/L (96-112); CO2 (CARBON DIOXIDE) 35 MMOL/L (24-34); CREATININE 2.45 MG/DL (0.70-1.30); GFR AFRICAN AMERICAN 32 ML/MIN (>=60); GFR NON AFRICAN AMERICAN 28 ML/MIN (>=60); SODIUM, SERUM 144 MMOL/L (135-148)
[2016-08-22 05:23] LABS: BUN (BLOOD UREA NITROGEN) 69 MG/DL (6-23); GLUCOSE, SERUM 67 MG/DL (60-99)
[2016-08-23 06:35] LABS: BASOPHILS 0.6 %; BASOPHILS ABSOLUTE 0.04 10/3/uL (0.0-0.16); EOSINOPHILS ABSOLUTE 0.35 10/3/uL (0.0-0.53); HEMATOCRIT 37.1 % (40.0-51.0); HEMOGLOBIN 11.4 g/dL (13.6-17.8); IMMATURE GRANULOCYTES 0.4 %; IMMATURE GRANULOCYTES ABSOLUTE 0.03 10/3/uL (0.0-0.11); LYMPHOCYTES 23.6 %; LYMPHOCYTES ABSOLUTE 1.65 10/3/uL (0.67-4.30); MEAN CORPUS HGB CONC 30.7 g/dL (32.0-36.0); MEAN CORPUSCULAR HEMOGLOB 27.2 pg (26.0-34.0); MEAN CORPUSCULAR VOLUME 88.5 fL (80-100); MEAN PLATELET VOLUME 10.7 fL (9.2-13.0); MONOCYTES 13.9 %; MONOCYTES ABSOLUTE 0.97 10/3/uL (0.21-1.20); NEUTROPHILS 56.5 %; NEUTROPHILS ABSOLUTE 3.96 10/3/uL (2.02-8.40); PLATELET COUNT 211 10/3/uL (150-400); RBC DISTRIBUTION WIDTH 14.5 % (12.0-16.0); RED CELL COUNT 4.19 10/6/uL (4.7-6.1)
[2016-08-23 06:39] LABS: CALCIUM, SERUM 9.2 MG/DL (8.5-10.4); CHLORIDE, SERUM 101 MMOL/L (96-112); CO2 (CARBON DIOXIDE) 36 MMOL/L (24-34); POTASSIUM, SERUM 4.7 MMOL/L (3.5-5.3); SODIUM, SERUM 145 MMOL/L (135-148)
[2016-08-23 06:42] LABS: BUN (BLOOD UREA NITROGEN) 58 MG/DL (6-23); CREATININE 1.34 MG/DL (0.70-1.30); GFR AFRICAN AMERICAN 66 ML/MIN (>=60); GFR NON AFRICAN AMERICAN 57 ML/MIN (>=60); GLUCOSE, SERUM 96 MG/DL (60-99); MANUAL DIFF NO %
[2016-08-24 04:20] LABS: BASOPHILS 0.5 %; BASOPHILS ABSOLUTE 0.03 10/3/uL (0.0-0.16); EOSINOPHILS 5.2 %; EOSINOPHILS ABSOLUTE 0.32 10/3/uL (0.0-0.53); HEMATOCRIT 38.9 % (40.0-51.0); IMMATURE GRANULOCYTES 0.2 %; IMMATURE GRANULOCYTES ABSOLUTE 0.01 10/3/uL (0.0-0.11); LYMPHOCYTES 25.4 %; LYMPHOCYTES ABSOLUTE 1.55 10/3/uL (0.67-4.30); MEAN CORPUS HGB CONC 30.8 g/dL (32.0-36.0); MEAN CORPUSCULAR HEMOGLOB 27.5 pg (26.0-34.0); MEAN PLATELET VOLUME 10.2 fL (9.2-13.0); MONOCYTES 13.6 %; MONOCYTES ABSOLUTE 0.83 10/3/uL (0.21-1.20); NEUTROPHILS 55.1 %; NEUTROPHILS ABSOLUTE 3.36 10/3/uL (2.02-8.40); PLATELET COUNT 209 10/3/uL (150-400); RBC DISTRIBUTION WIDTH 13.9 % (12.0-16.0); RED CELL COUNT 4.37 10/6/uL (4.7-6.1); WHITE BLOOD CELLS 6.1 10/3/uL (4.5-10.5)
[2016-08-24 04:22] LABS: MANUAL DIFF NO %
[2016-08-24 04:31] LABS: BUN (BLOOD UREA NITROGEN) 50 MG/DL (6-23); CALCIUM, SERUM 9.3 MG/DL (8.5-10.4); CHLORIDE, SERUM 98 MMOL/L (96-112); CO2 (CARBON DIOXIDE) 38 MMOL/L (24-34); CREATININE 1.27 MG/DL (0.70-1.30); GFR AFRICAN AMERICAN 71 ML/MIN (>=60); GFR NON AFRICAN AMERICAN 61 ML/MIN (>=60); GLUCOSE, SERUM 73 MG/DL (60-99); SODIUM, SERUM 144 MMOL/L (135-148)
[2016-08-24] MEDS ORDERED: MOUTH WASH PO (15:22)
[2016-08-24] MEDS ORDERED: FLOMAX4 PO (15:23)
[2016-12-29] MEDS ORDERED: KLONO1 PO (18:29)
[2016-12-29] MEDS ORDERED: LIOR10 PO (18:29)
[2016-12-29] MEDS ORDERED: ASAB PO (18:29)
[2016-12-29] MEDS ORDERED: COMBIVENT RESPIM4 GM INH (18:30)
[2016-12-29] MEDS ORDERED: FERROUS SULF325 M1 PO (18:31)
[2016-12-29] MEDS ORDERED: L40 PO (18:31)
[2016-12-29] MEDS ORDERED: NEUR300 PO (18:31)
[2016-12-29] MEDS ORDERED: NEXIUM40 PO (18:31)
[2016-12-29] MEDS ORDERED: HUMULIN500CONC SC ×2 (18:33→18:34)
[2016-12-29] MEDS ORDERED: GLUCOPHAGE1000 MG PO (18:36)
[2016-12-29] MEDS ORDERED: LAMICTAL25 PO (18:36)
[2016-12-29] MEDS ORDERED: MSCONTIN PO (18:37)
[2016-12-29] MEDS ORDERED: NITROSTAT0.4 MG SL (18:37)
[2016-12-29] MEDS ORDERED: PERCOCET 10/3251 TAB PO (18:37)
[2016-12-29] MEDS ORDERED: KDUR10 PO (18:37)
[2016-12-29] MEDS ORDERED: DIOVAN320 MG PO (18:38)
[2016-12-29] MEDS ORDERED: TRAZ100 PO (18:38)
[2016-12-29] MEDS ORDERED: CRESTOR20 MG PO (18:38)
[2016-12-29] MEDS ORDERED: METHOC500B PO (18:39)
[2016-12-30] MEDS ORDERED: VENTOLIN HFA INH (15:21)
[2017-01-07] MEDS ORDERED: NEUR600 PO (21:16)
[2017-01-07] MEDS ORDERED: TRAZ100 PO (21:20)
[2017-01-07] MEDS ORDERED: PAIN TOP (21:20)
[2017-01-07] MEDS ORDERED: DIOVAN320 MG PO (21:20)
[2017-01-07] MEDS ORDERED: MSCONTIN PO (21:21)
[2017-01-07] MEDS ORDERED: PERCOCET 10/3251 TAB PO (21:22)
[2017-01-07] MEDS ORDERED: FERROUS SULF325 M1 PO (21:23)
[2017-01-07] MEDS ORDERED: LIOR10 PO (21:23)
[2017-01-07] MEDS ORDERED: L40 PO (21:24)
[2017-01-07] MEDS ORDERED: LAMICTAL25 PO (21:24)
[2017-01-07] MEDS ORDERED: VENTOLIN HFA INH (21:25)
[2017-01-07] MEDS ORDERED: FISH-EPA1000 MG PO (21:25)
[2017-01-07] MEDS ORDERED: GLUCOPHAGE1000 MG PO (21:25)
[2017-01-07] MEDS ORDERED: NYSTATPOW TOP (21:26)
[2017-01-07] MEDS ORDERED: NEXIUM40 PO (21:26)
[2017-01-07] MEDS ORDERED: HUMULIN500CONC SC ×2 (21:27→21:28)
[2017-01-07] MEDS ORDERED: KLOR-CON 1010 MEQ PO (21:28)
[2017-01-07] MEDS ORDERED: NITROSTAT0.4 MG SL (21:29)
[2017-01-07] MEDS ORDERED: METHOC500B PO (21:29)
[2017-01-07] MEDS ORDERED: COMBIVENT RESPIM4 GM INH (21:30)
[2017-01-07] MEDS ORDERED: ASAB PO (21:31)
[2017-01-07] MEDS ORDERED: KLONO2 PO (21:33)
== END 2016-08-24 16:42 | disposition home health service (06) | DRG 291 ==
LOC: 2SO 15:47
PROVIDERS: Hospitalist; Nurse Practitioner Family
DX: I50.33 Acute on chronic diastolic (congestive) heart failure (principal); J96.02 Acute respiratory failure with hypercapnia; E66.2 Morbid (severe) obesity with alveolar hypoventilation; Z68.43 Body mass index [BMI] 50.0-59.9, adult; N17.9 Acute kidney failure, unspecified; E66.01 Morbid (severe) obesity due to excess calories; E78.5 Hyperlipidemia, unspecified; N18.9 Chronic kidney disease, unspecified; E11.9 Type 2 diabetes mellitus without complications; K21.9 Gastro-esophageal reflux disease without esophagitis; G47.33 Obstructive sleep apnea (adult) (pediatric); F31.9 Bipolar disorder, unspecified; I12.9 Hypertensive chronic kidney disease with stage 1 through stage 4 chronic kidney disease, or unspecified chronic kidney disease; I25.10 Atherosclerotic heart disease of native coronary artery without angina pectoris; G89.29 Other chronic pain; F41.9 Anxiety disorder, unspecified; Z95.5 Presence of coronary angioplasty implant and graft; Z82.49 Family history of ischemic heart disease and other diseases of the circulatory system; Z82.61 Family history of arthritis; Z80.9 Family history of malignant neoplasm, unspecified; Z87.891 Personal history of nicotine dependence
CPT/HCPCS: 36600; 70450; 71010; 80048; 80053; 81001; 82140; 82805; 82962; 83036; 83735; 83880; 84100; 84439; 84443; 85025; 93971; 94640; 94660; 94762; 97110-GP; 97116-GP; 97162-GP; 97530-GP; A9270-GY; G8978-CK-GP; G8979-CJ-GP; J0360; J1940; J3486

== ENCOUNTER 2016-09-18 15:22 | Inpatient (IN) | payer MEDICARE, OTHER ==
--- NOTE | ~2016-09-18 | DS ---
Discharge Summary [facility] [address] [place]. [address] NAME: CARLOS ELIZABETH : 57 STATUS : DIS IN PAT#: [id number] AGE: 61 ADM/REG DATE : 09/19/16 MR#: [id number] REPORT SERV DATE: 09/24/16 DICTATED BY: DATE: REPORT STATUS : Draft TRANSCRIBED BY: MODL DATE: 09/22/16 ADMISSION DATE: 09/19/2016 DISCHARGE DATE: 09/22/2016 ADDENDUM: The previously dictated discharge summary was dictated on September 04. The patient was admitted to the [facility], attending Dr. Chester Null. DISCHARGE DIAGNOSES: 1. Acute on chronic hypercapnic respiratory failure, longstanding history of sleep apnea and obesity hypoventilation syndrome with CPAP noncompliance. Initiated on nocturnal BiPAP here. The patient to follow up with fire equipment operator, Dr. Zuniga, regarding outpatient CPAP or BiPAP therapy to be provided by [facility]. 2. Acute cor pulmonale, resolved. 3. Hypertensive emergency, resolved. 4. Insulin-dependent diabetes mellitus type 2, uncontrolled. Treated with basal and bolus Levemir and NovoLog here. To resume U500 once he is discharged back to home. 5. History of diastolic congestive heart failure. 6. History of coronary artery disease with prior stent. 7. Bipolar disorder. 8. Chronic pain syndrome and narcotic dependence. 9. Degenerative disk disease. 10.Morbid obesity. HOSPITAL COURSE: Please refer the previously dictated discharge summary on 09/21. The patient remained hospitalized until 09/22, at which point the three-midnight rule for his insurance had been satisfied, and he was discharged to [facility] for ongoing nocturnal BiPAP and physical rehabilitation prior to being discharged home. controller operations and hr manager at [facility] will need to follow up with [facility] regarding the delivery of his home CPAP or BiPAP machine, and the patient will need to follow up closely with Dr. Zuniga for any additional titrations. The patient is being discharged on Levemir and NovoLog and may return to taking high doses of U-500 insulin after he has been discharged to home. He will need to follow up closely with his PCP and pharmacy operations coordinator regarding this. CHRIS/JAKE Chester Null M.D. / [id number] CC: Chester Null M.D. Discharge Summary [address] [address] NAME: CARLOS ELIZABETH : 57 STATUS : DIS IN PAT#: [id number] AGE: 61 ADM/REG DATE : 09/19/16 MR#: [id number] REPORT SERV DATE: 09/24/16 DICTATED BY: DATE: REPORT STATUS : Draft TRANSCRIBED BY: MODL DATE: 09/22/16 Jennifer Persaud Jr., M.D. Ramya Embar Srinivasan, MD
--- NOTE | ~2016-09-18 | DS ---
Discharge Summary [facility] [address] [place]. [address] NAME: CARLOS ELIZABETH : 57 STATUS : DIS IN PAT#: [id number] AGE: 61 ADM/REG DATE : 09/19/16 MR#: [id number] REPORT SERV DATE: 09/24/16 DICTATED BY: DATE: REPORT STATUS : Draft TRANSCRIBED BY: MODL DATE: 09/21/16 ADMISSION DATE: 09/19/2016 DISCHARGE DATE: ANTICIPATED DATE OF DISCHARGE: 09/22/2016 [facility], Dr. Chester Null. DISCHARGE DIAGNOSES: 1. Acute on chronic hypercapnic respiratory failure-longstanding history of obstructive sleep apnea and obesity hypoventilation syndrome and longstanding history of CPAP noncompliance. For home CPAP versus BiPAP, per coffee grinder Dr. Samson Zuniga. 2. Acute cor pulmonale.-status post diuresis. 3. Hypertensive emergency-briefly requiring Cardene drip. Resolved, with medications in oral antihypertensive regimen. 4. Insulin-dependent diabetes mellitus type 2-uncontrolled with last hemoglobin A1c 8.5. Utilizing an outpatient regimen of U-500. Controlled on Levemir and NovoLog this admission. 5. History of diastolic congestive heart failure. 6. History of coronary artery disease with prior cardiac stent. 7. Bipolar disorder. 8. Chronic pain syndrome and narcotic dependence. 9. Degenerative disk disease. 10.Generalized weakness-for additional physical rehabilitation. 11.Right upper lobe pulmonary nodules with recommendation for repeat noncontrast CT chest in one year. IMAGIN. Portable chest x-ray, 09/18/2016 for shortness of breath shows cardiomegaly, lungs clear. 2. Brain CT without contrast 09/18/2016 for vertigo, nausea, vomiting shows unremarkable noncontrast head CT. No acute intracranial pathology. 3. CTA chest, 09/18/2016 for shortness of breath shows no CTA evidence of pulmonary embolus. Enlarged main pulmonary artery consistent with CT evidence of pulmonary hypertension. Borderline cardiomegaly. Minor subsegmental atelectasis in the posterior right lung base with no acute cardiopulmonary disease. Indeterminate noncalcified pulmonary nodules, right upper lobe measuring 4 and 5 mm respectively with a benign appearance. 4. A CT abdomen and pelvis without contrast on 09/18/2016 for nausea and vomiting shows moderate dense coronary artery calcifications in the LAD. Nonspecific hepatomegaly and hepatic steatosis, similar to prior exam. Status post cholecystectomy. Diffuse infiltration of subcutaneous fat planes along the right flank and right lateral abdominal wall. Correlation with clinical exam requested. PERTINENT LABS: Initial blood gas showed pH 7.27, pCO2 of 91, pO2 of 116 on oxygen Discharge Summary [id number] [place]. [address] NAME: CARLOS ELIZABETH : 57 STATUS : DIS IN PAT#: [id number] AGE: 61 ADM/REG DATE : 09/19/16 MR#: [id number] REPORT SERV DATE: 09/24/16 DICTATED BY: DATE: REPORT STATUS : Draft TRANSCRIBED BY: MODL DATE: 09/21/16 saturations 98% on BiPAP. White blood cell count was normal this admission. Hemoglobin was slightly low between 10.5 and 11. Platelets were normal. Coagulation studies normal. Kidney functioning, normal. Liver enzymes, normal. Serum acetone, negative. BNP 81. Troponin x2 negative. Procalcitonin negative. Lactic acid level negative. TSH 0.279. Hemoglobin A1c 8.5 in August 2016. Blood cultures x2 negative. Nasal swab was MRSA positive and MSSA positive. BRIEF HISTORY: For full details, please see the previously dictated history of present illness by Dr. Barry Blackwell. This is a chronically ill 61-year-old white male with long- standing history of obstructive sleep apnea and obesity hypoventilation syndrome. He has been noncompliant with his CPAP for several years. He recently has been seeing a new coffee grinder, Dr. Zuniga, who has arranged for outpatient CPAP or BiPAP therapy, and the patient was currently in the process of obtaining the machine, awaiting insurance approvals. The patient was brought to the emergency department on the 09/19/2016 with shortness of breath, weakness, and because he was difficult to arouse. Initial blood gas revealed CO2 narcosis and the patient was placed on BiPAP. Other pertinent findings in the emergency department included nausea, vomiting, diarrhea, and uncontrolled blood pressure with systolic pressures initially 210 over diastolic 110. The patient's sugars were also uncontrolled in the emergency department. Request was made to have the patient admitted to the Hospitalist Service. HOSPITAL COURSE: The patient was admitted to the [facility] under my service. I saw him the same day as admission, first thing in the morning, for re-evaluation of the uncontrolled blood pressure. He was able to be weaned off his Cardene drip that day, with adjustment in some of his oral medications and transdermal clonidine patch. The patient's hypercapnia corrected rapidly, and he was able to be weaned off BiPAP to just p.r.n. and nocturnal use within the first 24 hours of admission. He did appear to have slight volume overload clinically with 3+ edema in the lower extremities and was placed on IV diuretics and then eventually transitioned to oral. For his diabetes, initial sugars were in excess of 400. He uses a regimen of U-500 at home which was 125 units before supper and 150 units with breakfast and lunch. Rather than continue these dosages, for concerns of the patient's safety and safety of administration, he was managed with a regimen of Levemir and NovoLog here. He was requiring 60 units of Levemir twice a day and 25 units of NovoLog plus sliding scale subcu q.a.c. three times a day to keep his blood sugars less than 200. The nausea, vomiting, and diarrhea subsided as the patient's blood pressure was controlled. We attempted to send stool for studies, but his bowel movements formed before those could be obtained. He was able to be transferred out of the [facility] on the second morning of hospitalization, at which point, his Junior catheter was discontinued and he was transitioned to oral diuretics. His diet was advanced and a Physical Therapy evaluation was obtained. They recommended the patient go to a skilled facility for rehabilitation prior to return home. The patient had gone to [facility] in the past and elected to be referred back to [facility]. They have a bed available and the expected date of transfer is 09/22/2016 after the patient has spent his third midnight here in the hospital. Discharge Summary [address] [place]. [address] NAME: CARLOS ELIZABETH : 57 STATUS : DIS IN PAT#: [id number] AGE: 61 ADM/REG DATE : 09/19/16 MR#: [id number] REPORT SERV DATE: 09/24/16 DICTATED BY: DATE: REPORT STATUS : Draft TRANSCRIBED BY: MODL DATE: 09/21/16 The patient is unsure whether or not he is going to be able to tolerate BiPAP. Limiting factors have included nasal congestion and claustrophobia. We are going to trial Afrin and give him a dose of his Ativan prior to BiPAP usage to see if this helps. DISCHARGE DISPOSITION: The patient will be discharged to [facility] in the morning for additional rehabilitation before returning home. Regarding diet, he should adhere to an 1800 K calorie ADA, sodium restricted, 2 L fluid restricted diet. He needs to use BiPAP at current settings q.h.s. and during any daytime naps. He can also utilize oxygen by nasal cannula 2 to 4 L titrated to maintain oxygen saturations greater than 88% when he is not sleeping. Activity will be as directed by the physical therapist at the receiving facility. He needs to follow up with Dr. Zuniga and with Ary regarding his home BiPAP or CPAP prior to discharge to home. He also needs to keep any previously scheduled followup appointments with primary care provider, Jennifer Persaud, and senior chemist Dr. Collins. DISCHARGE MEDICATIONS: Include, 1. Norvasc 5 mg p.o. daily. 2. Aspirin 81 mg p.o. daily. 3. Lipitor 40 mg p.o. at bedtime. 4. Baclofen 10 mg p.o. three times daily. 5. Coreg 25 mg p.o. twice a day. 6. B12 of 1000 mcg p.o. daily. 7. Pepcid 20 mg p.o. daily. 8. Lasix 40 mg p.o. twice a day at 8 in the morning and 1 p.m. 9. Neurontin 300 mg p.o. three times a day. 10.NovoLog level 3 sliding scale subcu q.a.c. and q.h.s. 11.Claritin 10 mg p.o. daily. 12.Robaxin 500 mg p.o. three times a day. 13.MS Contin 15 mg p.o. twice a day-this was decreased from his prior home dosage of 30 mg twice a day for sedation and hypercapnia. 14.Protonix 40 mg p.o. before breakfast. 15.Potassium 10 mEq p.o. daily. 16.Trazodone 50 mg p.o. at bedtime. 17.Diovan 320 mg p.o. daily. 18.Catapres patch 0.2 mg topical weekly. 19.DuoNebs 3 mL inhaled four times a day as needed for shortness of breath. 20.Tylenol 650 mg p.o. every 4 hours as needed for pain. 21.Sublingual nitroglycerin 0.4 mg as needed. 22.Topical nystatin applied to rash daily as needed. 23.Percocet 5 mg/325 mg one tablet p.o. every 4 hours as needed-this was decreased from his home dose of 10 mg/325 mg-for hypercapnia and sedation. 24.Klonopin 2 mg p.o. every 4 hours as needed for anxiety and q.h.s. p.r.n. BiPAP tolerance. Discharge Summary [address] [address] NAME: CARLOS ELIZABETH : 57 STATUS : DIS IN PAT#: [id number] AGE: 61 ADM/REG DATE : 09/19/16 MR#: [id number] REPORT SERV DATE: 09/24/16 DICTATED BY: DATE: REPORT STATUS : Draft TRANSCRIBED BY: MODL DATE: 09/21/16 25.NovoLog 25 units subcu q.a.c. t.i.d. 26.Levemir 60 units subcu b.i.d. 27.Afrin 2 sprays q. nostril q.h.s. prior to BiPAP use. 40 minutes was spent in completion of the discharge. CHRIS/JAKE Chester Null M.D. / [id number] CC: Constantine Corley MD John Boldt Jr., M.D. [facility] MD Nahomy Alba MD
--- NOTE | ~2016-09-18 | HP ---
History And Physical [address] [facility] [place]. [address] NAME: CARLOS ELIZABETH : 57 STATUS : ADM IN [facility]#: [id number] AGE: 61 ADM/REG DATE : 09/19/16 MR#: [id number] REPORT SERV DATE: 09/19/16 DICTATED BY: BARRY DUARTE DATE: 09/19/16 REPORT STATUS : Draft TRANSCRIBED BY: MODL DATE: 09/19/16 DATE OF ADMISSION: 09/19/2016 CHIEF COMPLAINT: Shortness of breath and weakness. HISTORY OF PRESENT ILLNESS: This is a 61-year-old morbidly obese male with a history of diabetes mellitus, hypertension, and morbid obesity, who comes to the emergency room at [facility] [place] with the above-mentioned complaint. History is obtained from the patient and reviewing data available on the [employer] system. According to available data, Mr. Elizabeth was in his usual state of health until yesterday in the evening when he became short of breath and this progressively worsened. In the morning, his woke him up, but he could not even get out of bed. The patient lives in [place], [place] and EMS was summoned to bring him over here. In the emergency room, he initially had mild hypercapnic respiratory failure, and while he was being evaluated in the emergency room, the patient started having respiratory distress. An arterial blood gas was done again, which showed acute hypercapnic respiratory failure and the patient was placed on BiPAP for positive pressure ventilatory support. Subsequent to that, a repeat arterial blood gas showed a pH of 7.54, pCO2 was down to 44, and bicarb was 37.6. Hospitalist Service is asked to admit him for further evaluation and treatment. At the time of my evaluation, the patient started having nausea with vomiting while he was on the BiPAP and had to be discontinued. He denied any chest pain or palpitations at that time. He has mild orthopnea. He had no cough, hemoptysis, night sweats, or weight loss. He denied any fevers or chills while at home. He has had no recent falls or loss of consciousness. No history of nausea, vomiting while at home, but started while he was here in the ER. No history of diarrhea, hematemesis, hematochezia, or hematuria. No other history of recent travel or exposures other than those mentioned above. While in the ER, when I saw him, the patient was taken off the BiPAP and placed on nasal cannula as he continued to have intractable nausea and vomiting. PAST MEDICAL HISTORY: Significant for history of recent diagnosis of obstructive sleep apnea by Dr. Samson Zuniga, awaiting his CPAP machine. We do not have the results of the sleep study. He also has a history of diabetes mellitus type 2, hypertension, and chronic pain. SOCIAL HISTORY: He does not smoke, drink, or use recreational drugs. FAMILY HISTORY: Noncontributory. 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 REVIEW OF SYSTEMS: As in history of present illness. All other systems were reviewed in detail and are quite unremarkable. MEDICATIONS: Reviewed on the chart and reordered. History And Physical [address] [address] NAME: CARLOS ELIZABETH : 57 STATUS : ADM IN [facility]#: [id number] AGE: 61 ADM/REG DATE : 09/19/16 MR#: [id number] REPORT SERV DATE: 09/19/16 DICTATED BY: BARRY DUARTE DATE: 09/19/16 REPORT STATUS : Draft TRANSCRIBED BY: JAKE DATE: 09/19/16 PHYSICAL EXAMINATION: GENERAL: This is a pleasant 61-year-old morbidly obese, not in any acute distress. He is alert, awake, oriented to time, place, and person, although he appears to be quite lethargic. HEENT: His head is atraumatic, normocephalic. His pupils were equal, reacting to light and accommodating. External ocular muscles were intact. Membranes were moist and pink. Sclerae are nonicteric. NECK: Supple with no jugular venous distention, lymphadenopathy, or thyromegaly. It was thick. LUNGS: Auscultation of his lungs revealed markedly diminished air entry bilaterally without any expiratory wheezes. Trachea appeared to be in the midline. HEART: Auscultation of his heart revealed normal rate and rhythm with no murmurs, rubs, or gallops. ABDOMEN: Protuberant, soft, nontender. Bowel sounds are present. EXTREMITIES: Showed bilateral pitting edema with no cyanosis or clubbing. NEUROLOGIC: Grossly intact. No focal sensory or motor deficits. Higher functions appeared intact. VITAL SIGNS: Vital signs today showed temperature of 99.8, pulse was 103, respirations 20 a minute, blood pressure was 208/70 upon arrival. Oxygen saturations were 92% at 2 to 3 L via nasal cannula upon arrival. LABORATORY DATA: Reviewed on the [employer] system today showed a pH of 7.42 when he arrived, his pCO2 was 65, PaO2 of 65, and bicarb was 41.4. This was on 3 L of oxygen via nasal cannula. Subsequently, his arterial blood gas went to 7.27 pH, pCO2 was 91, pO2 was 169, and bicarb was 41.0. His last blood gas while he was on the BiPAP showed pH of 7.54, pCO2 was 44, PaO2 of 70, and bicarb was 37.6. His CMP showed sodium of 140, potassium was 4.7, chloride 95, and CO2 of 40, BUN was 20 with a creatinine of 0.90, and blood glucose was 207. His acetone was negative today and troponin was 0.02. His BNP was 81 today. CBC showed a white blood cell count of 5300, hemoglobin was 10.5, hematocrit was 34.8, and platelet count was 182,000. His prothrombin time was 12.6 with an INR of 1.0. Urinalysis was not performed today. IMAGING DATA: Films of the chest x-ray and CT scan of the abdomen, brain, and chest were reviewed by me on the PACS today and interpreted by me. The chest x-ray, per my interpretation, did not reveal any acute pulmonary infiltrates or pleural effusions. CT films reviewed showed no acute changes on CT of the abdomen, brain, or chest. A 12-lead EKG done in the emergency room reviewed and interpreted by me. There is sinus tachycardia at a rate of [address]-T changes. IMPRESSION: 1. Shortness of breath. 2. Acute hypercapnic respiratory failure. 3. Posthypercapnic alkalosis. 4. Obesity hypoventilation with obstructive sleep apnea, not on treatment at this time. 5. Intractable nausea and vomiting. 6. Uncontrolled hypertension. History And Physical [address] [address] NAME: CARLOS ELIZABETH : 57 STATUS : ADM IN [facility]#: [id number] AGE: 61 ADM/REG DATE : 09/19/16 MR#: [id number] REPORT SERV DATE: 09/19/16 DICTATED BY: BARRY DUARTE DATE: 09/19/16 REPORT STATUS : Draft TRANSCRIBED BY: JAKE DATE: 09/19/16 7. Diabetes mellitus with hyperglycemia. 8. Chronic pain. 9. Heart failure with preserved left ventricular function and an ejection fraction of 55%. PLAN: We will admit Mr. Elizabeth to the Hospitalist Service with close monitoring in the Medical Intermediate Care Unit. Will need close monitoring due to the fact that he has intractable nausea and vomiting and he needs positive pressure ventilatory support for his hypercapnia as well. Right now, we have taken him off the BiPAP, so that his nausea and vomiting may be controlled with intravenous Zofran and Phenergan that I have given to him. I have also treated him with hydralazine intravenously and transdermal clonidine to bring his pressures down. We will place him on bronchodilator treatments and supplemental oxygen therapy and restart his BiPAP as soon as his symptoms have resolved and he can be started back on it. We will also place him on blood sugar control with NovoLog given subcutaneously per sliding scale and place him on unfractionated heparin for DVT prophylaxis while he is here. We will continue other medications and treatments while he is here as well. Please see today's orders for all the details. I have discussed the above plans with the patient, his questions were answered in detail, and he is agreeable to the above recommendations. Hospitalist Service will be following him during his stay here. Total critical care time spent with the patient is 45 minutes. /JAKE Barry Duarte M.D. / [id number] CC: Constantine Corley TRACY
[2016-09-18 14:55] LABS: BASOPHILS 0.2 %; BASOPHILS ABSOLUTE 0.01 10/3/uL (0.0-0.16); EOSINOPHILS 3.2 %; EOSINOPHILS ABSOLUTE 0.17 10/3/uL (0.0-0.53); ER CBC TAT 0 Hrs 05 Mins; HEMATOCRIT 34.8 % (40.0-51.0); HEMOGLOBIN 10.5 g/dL (13.6-17.8); IMMATURE GRANULOCYTES 0.2 %; IMMATURE GRANULOCYTES ABSOLUTE 0.01 10/3/uL (0.0-0.11); LYMPHOCYTES 18.8 %; MANUAL DIFF NO %; MEAN CORPUS HGB CONC 30.2 g/dL (32.0-36.0); MEAN CORPUSCULAR HEMOGLOB 26.6 pg (26.0-34.0); MEAN CORPUSCULAR VOLUME 88.1 fL (80-100); MEAN PLATELET VOLUME 9.8 fL (9.2-13.0); MONOCYTES ABSOLUTE 0.48 10/3/uL (0.21-1.20); NEUTROPHILS 68.6 %; NEUTROPHILS ABSOLUTE 3.66 10/3/uL (2.02-8.40); PLATELET COUNT 182 10/3/uL (150-400); RBC DISTRIBUTION WIDTH 15.5 % (12.0-16.0); RED CELL COUNT 3.95 10/6/uL (4.7-6.1); WHITE BLOOD CELLS 5.3 10/3/uL (4.5-10.5)
[2016-09-18 15:02] LABS: PARTIAL THROMBO TIME 24.6 SEC (22.5-37.2); PROTIME (NOT ORD) 12.6 SEC (12.0-14.5)
[2016-09-18 15:12] LABS: CALCIUM, SERUM 8.7 MG/DL (8.5-10.4); CHEST PAIN PROFILE TAT 0 Hrs 22 Mins; CHLORIDE, SERUM 95 MMOL/L (96-112); CO2 (CARBON DIOXIDE) 40 MMOL/L (24-34); GFR AFRICAN AMERICAN 107 ML/MIN (>=60); GFR NON AFRICAN AMERICAN 93 ML/MIN (>=60); POTASSIUM, SERUM 4.7 MMOL/L (3.5-5.3); SODIUM, SERUM 140 MMOL/L (135-148); TROPONIN I <0.02 NG/ML (<0.05)
[2016-09-18 15:13] LABS: BUN (BLOOD UREA NITROGEN) 20 MG/DL (6-23); GLUCOSE, SERUM 206 MG/DL (60-99)
[~2016-09-18 15:22] MED LIST changes: +CAT2 PO; +COMBIVENT RESPIM4 GM PO; +DIOVAN320 MG PO; +FLOMAX4 PO; +KLONO2 PO; +MOUTH WASH PO; +MSCONTIN PO; +NYSTATPOW TOP; +PERCOCET 10/3251 TAB PO; +ZANTAC300 MG PO
[2016-09-18 16:09] LABS: ALLENS TEST Pos; BE (BASE EXCESS) 14.5 MEQ/L (0 +/- 2.5); CARBOXYHEMOGLOBIN 1.8 % (0-3); HCO3 (ACTUAL BICARBONATE) 41.4 MEQ/L (23-27); HEMOBLOGIN CONTENT 10.8 G/DL (14-18); INSTRUMENT SERIAL # 8087; METHEMOGLOBIN 0.3 % (0-3); O2 CONTENT 13.8 VOL% (18-24); OPERATOR ID 14382; PCO2 (CO2 TENSION) 65 MMHG (35-45); PO2 (O2 TENSION) 65 MMHG (79-93); SAMPLE Arterial; pH 7.42 (7.37-7.43)
[2016-09-18 19:34] LABS: ALLENS TEST Pos; BE (BASE EXCESS) 11.1 MEQ/L (0 +/- 2.5); CARBOXYHEMOGLOBIN 1.1 % (0-3); DEVICE NRB; HEMOBLOGIN CONTENT 11.4 G/DL (14-18); INSTRUMENT SERIAL # 8087; METHEMOGLOBIN 0.3 % (0-3); O2 CONTENT 15.8 VOL% (18-24); OPERATOR ID 33449; PCO2 (CO2 TENSION) 91 MMHG (35-45); PO2 (O2 TENSION) 169 MMHG (79-93); SAMPLE Arterial; pH 7.27 (7.37-7.43)
[2016-09-18] MEDS ORDERED: COMBIVENT RESPIM4 GM INH (23:05)
[2016-09-18] MEDS ORDERED: ZANTAC300 MG PO (23:05)
[2016-09-18] MEDS ORDERED: FISH OIL OTC PO (23:06)
[2016-09-18] MEDS ORDERED: NEXIUM40 PO (23:06)
[2016-09-18] MEDS ORDERED: ASAB PO (23:06)
[2016-09-18] MEDS ORDERED: NITROSTAT0.4 MG SL (23:07)
[2016-09-18] MEDS ORDERED: NEUR300 PO (23:07)
[2016-09-18] MEDS ORDERED: CAT1 PO (23:09)
[2016-09-18] MEDS ORDERED: HUMULIN500CONC SC (23:09)
[2016-09-18] MEDS ORDERED: KLOR-CON M1010 MEQ PO (23:09)
[2016-09-18] MEDS ORDERED: COREG25 PO (23:09)
[2016-09-18] MEDS ORDERED: LIOR10 PO (23:10)
[2016-09-18] MEDS ORDERED: KLONO2 PO (23:10)
[2016-09-18] MEDS ORDERED: NYSTATPOW TOP (23:11)
[2016-09-18] MEDS ORDERED: METHOC500B PO (23:12)
[2016-09-18] MEDS ORDERED: PERCOCET 10/3251 TAB PO (23:12)
[2016-09-18] MEDS ORDERED: TRAZ50 PO (23:12)
[2016-09-18] MEDS ORDERED: MSCONTIN PO (23:14)
[2016-09-18] MEDS ORDERED: ZYRTEC ALLGY10 MG PO (23:15)
[2016-09-18] MEDS ORDERED: DIOVAN320 MG PO (23:15)
[2016-09-18] MEDS ORDERED: VENTOLIN HFA INH (23:16)
[2016-09-18] MEDS ORDERED: LIPITOR40 PO (23:16)
[2016-09-18] MEDS ORDERED: CYANO1000T PO (23:16)
[2016-09-18] MEDS ORDERED: L40 PO (23:16)
[2016-09-19 02:18] LABS: ALLENS TEST Pos; BE (BASE EXCESS) 12.9 MEQ/L (0 +/- 2.5); CARBOXYHEMOGLOBIN 1.3 % (0-3); HCO3 (ACTUAL BICARBONATE) 39.6 MEQ/L (23-27); HEMOBLOGIN CONTENT 10.7 G/DL (14-18); INSTRUMENT SERIAL # 8083; METHEMOGLOBIN 0.3 % (0-3); O2 CONTENT 13.6 VOL% (18-24); OPERATOR ID 33214; PCO2 (CO2 TENSION) 63 MMHG (35-45); PO2 (O2 TENSION) 62 MMHG (79-93); SAMPLE Arterial; pH 7.42 (7.37-7.43)
[2016-09-19 04:42] LABS: ALLENS TEST Pos; BE (BASE EXCESS) 16.2 MEQ/L (0 +/- 2.5); CARBOXYHEMOGLOBIN 0.8 % (0-3); HEMOBLOGIN CONTENT 10.9 G/DL (14-18); INSTRUMENT SERIAL # 8083; METHEMOGLOBIN 0.3 % (0-3); O2 CONTENT 14.4 VOL% (18-24); OPERATOR ID 33214; PCO2 (CO2 TENSION) 65 MMHG (35-45); PO2 (O2 TENSION) 78 MMHG (79-93); SAMPLE Arterial; pH 7.44 (7.37-7.43)
[2016-09-19 05:30] LABS: BASOPHILS 0.2 %; BASOPHILS ABSOLUTE 0.01 10/3/uL (0.0-0.16); EOSINOPHILS 0.2 %; EOSINOPHILS ABSOLUTE 0.01 10/3/uL (0.0-0.53); HEMATOCRIT 35.5 % (40.0-51.0); IMMATURE GRANULOCYTES 0.7 %; IMMATURE GRANULOCYTES ABSOLUTE 0.04 10/3/uL (0.0-0.11); LYMPHOCYTES 9.1 %; LYMPHOCYTES ABSOLUTE 0.53 10/3/uL (0.67-4.30); MANUAL DIFF NO %; MEAN CORPUSCULAR HEMOGLOB 27.1 pg (26.0-34.0); MEAN CORPUSCULAR VOLUME 87.4 fL (80-100); MEAN PLATELET VOLUME 10.2 fL (9.2-13.0); MONOCYTES 7.1 %; MONOCYTES ABSOLUTE 0.41 10/3/uL (0.21-1.20); NEUTROPHILS 82.7 %; PLATELET COUNT 202 10/3/uL (150-400); RBC DISTRIBUTION WIDTH 15.1 % (12.0-16.0); RED CELL COUNT 4.06 10/6/uL (4.7-6.1); WHITE BLOOD CELLS 5.8 10/3/uL (4.5-10.5)
[2016-09-19 05:51] LABS: BUN (BLOOD UREA NITROGEN) 20 MG/DL (6-23); CALCIUM, SERUM 9.3 MG/DL (8.5-10.4); CHLORIDE, SERUM 94 MMOL/L (96-112); CO2 (CARBON DIOXIDE) 37 MMOL/L (24-34); CREATININE 0.92 MG/DL (0.70-1.30); GFR AFRICAN AMERICAN 104 ML/MIN (>=60); GFR NON AFRICAN AMERICAN 90 ML/MIN (>=60); POTASSIUM, SERUM 4.5 MMOL/L (3.5-5.3); SODIUM, SERUM 140 MMOL/L (135-148)
[2016-09-19 05:53] LABS: GLUCOSE, SERUM 344 MG/DL (60-99); ULTRASENSITIVE TSH 0.279 MCIU/ML (0.358-3.740)
[2016-09-19 06:21] LABS: PROCALCITONIN 0.09 ng/mL (<0.5)
[2016-09-19] MEDS ORDERED: HUMULIN500CONC SC (12:08)
[2016-09-20 04:42] LABS: BASOPHILS 0.1 %; BASOPHILS ABSOLUTE 0.01 10/3/uL (0.0-0.16); EOSINOPHILS 2.7 %; EOSINOPHILS ABSOLUTE 0.19 10/3/uL (0.0-0.53); HEMATOCRIT 34.1 % (40.0-51.0); HEMOGLOBIN 10.7 g/dL (13.6-17.8); IMMATURE GRANULOCYTES 0.4 %; IMMATURE GRANULOCYTES ABSOLUTE 0.03 10/3/uL (0.0-0.11); LYMPHOCYTES 13.5 %; LYMPHOCYTES ABSOLUTE 0.95 10/3/uL (0.67-4.30); MEAN CORPUS HGB CONC 31.4 g/dL (32.0-36.0); MEAN CORPUSCULAR HEMOGLOB 27.6 pg (26.0-34.0); MEAN CORPUSCULAR VOLUME 88.1 fL (80-100); MEAN PLATELET VOLUME 9.7 fL (9.2-13.0); MONOCYTES 11.3 %; NEUTROPHILS ABSOLUTE 5.08 10/3/uL (2.02-8.40); PLATELET COUNT 202 10/3/uL (150-400); RBC DISTRIBUTION WIDTH 15.6 % (12.0-16.0); RED CELL COUNT 3.87 10/6/uL (4.7-6.1); WHITE BLOOD CELLS 7.1 10/3/uL (4.5-10.5)
[2016-09-20 04:42] LABS: BE (BASE EXCESS) 16.9 MEQ/L (0 +/- 2.5); CARBOXYHEMOGLOBIN 0.6 % (0-3); HCO3 (ACTUAL BICARBONATE) 44.7 MEQ/L (23-27); INSTRUMENT SERIAL # 8083; METHEMOGLOBIN 0.3 % (0-3); PCO2 (CO2 TENSION) 73 MMHG (35-45); PO2 (O2 TENSION) 103 MMHG (79-93)
[2016-09-20 04:43] LABS: MANUAL DIFF NO %
[2016-09-20 04:43] LABS: ALLENS TEST Pos; OPERATOR ID 33214; SAMPLE Arterial
[2016-09-20 04:55] LABS: CHLORIDE, SERUM 92 MMOL/L (96-112); CO2 (CARBON DIOXIDE) 40 MMOL/L (24-34); CREATININE 1.01 MG/DL (0.70-1.30); GFR AFRICAN AMERICAN 93 ML/MIN (>=60); GFR NON AFRICAN AMERICAN 80 ML/MIN (>=60); SODIUM, SERUM 140 MMOL/L (135-148)
[2016-09-20 04:56] LABS: BUN (BLOOD UREA NITROGEN) 24 MG/DL (6-23); GLUCOSE, SERUM 255 MG/DL (60-99); POTASSIUM, SERUM 3.5 MMOL/L (3.5-5.3)
[2016-09-20 09:31] LABS: ALLENS TEST Pos; BE (BASE EXCESS) 14.4 MEQ/L (0 +/- 2.5); CARBOXYHEMOGLOBIN 0.9 % (0-3); DEVICE NC; HCO3 (ACTUAL BICARBONATE) 41.7 MEQ/L (23-27); HEMOBLOGIN CONTENT 11.2 G/DL (14-18); INSTRUMENT SERIAL # 8083; METHEMOGLOBIN 0.3 % (0-3); O2 CONTENT 14.3 VOL% (18-24); OPERATOR ID 35798; PCO2 (CO2 TENSION) 68 MMHG (35-45); PO2 (O2 TENSION) 66 MMHG (79-93); SAMPLE Arterial; pH 7.41 (7.37-7.43)
[2016-09-21 05:50] LABS: BUN (BLOOD UREA NITROGEN) 24 MG/DL (6-23); CALCIUM, SERUM 8.6 MG/DL (8.5-10.4); CHLORIDE, SERUM 99 MMOL/L (96-112); CO2 (CARBON DIOXIDE) 38 MMOL/L (24-34); CREATININE 1.04 MG/DL (0.70-1.30); GFR AFRICAN AMERICAN 90 ML/MIN (>=60); GFR NON AFRICAN AMERICAN 78 ML/MIN (>=60); GLUCOSE, SERUM 223 MG/DL (60-99); POTASSIUM, SERUM 3.7 MMOL/L (3.5-5.3); SODIUM, SERUM 142 MMOL/L (135-148)
[2016-12-29] MEDS ORDERED: KLONO1 PO (18:29)
[2016-12-29] MEDS ORDERED: ASAB PO (18:29)
[2016-12-29] MEDS ORDERED: LIOR10 PO (18:29)
[2016-12-29] MEDS ORDERED: COMBIVENT RESPIM4 GM INH (18:30)
[2016-12-29] MEDS ORDERED: FERROUS SULF325 M1 PO (18:31)
[2016-12-29] MEDS ORDERED: NEUR300 PO (18:31)
[2016-12-29] MEDS ORDERED: NEXIUM40 PO (18:31)
[2016-12-29] MEDS ORDERED: L40 PO (18:31)
[2016-12-29] MEDS ORDERED: HUMULIN500CONC SC ×2 (18:33→18:34)
[2016-12-29] MEDS ORDERED: GLUCOPHAGE1000 MG PO (18:36)
[2016-12-29] MEDS ORDERED: LAMICTAL25 PO (18:36)
[2016-12-29] MEDS ORDERED: NITROSTAT0.4 MG SL (18:37)
[2016-12-29] MEDS ORDERED: MSCONTIN PO (18:37)
[2016-12-29] MEDS ORDERED: PERCOCET 10/3251 TAB PO (18:37)
[2016-12-29] MEDS ORDERED: KDUR10 PO (18:37)
[2016-12-29] MEDS ORDERED: CRESTOR20 MG PO (18:38)
[2016-12-29] MEDS ORDERED: TRAZ100 PO (18:38)
[2016-12-29] MEDS ORDERED: DIOVAN320 MG PO (18:38)
[2016-12-29] MEDS ORDERED: METHOC500B PO (18:39)
[2016-12-30] MEDS ORDERED: VENTOLIN HFA INH (15:21)
[2017-01-07] MEDS ORDERED: NEUR600 PO (21:16)
[2017-01-07] MEDS ORDERED: DIOVAN320 MG PO (21:20)
[2017-01-07] MEDS ORDERED: TRAZ100 PO (21:20)
[2017-01-07] MEDS ORDERED: PAIN TOP (21:20)
[2017-01-07] MEDS ORDERED: MSCONTIN PO (21:21)
[2017-01-07] MEDS ORDERED: PERCOCET 10/3251 TAB PO (21:22)
[2017-01-07] MEDS ORDERED: FERROUS SULF325 M1 PO (21:23)
[2017-01-07] MEDS ORDERED: LIOR10 PO (21:23)
[2017-01-07] MEDS ORDERED: L40 PO (21:24)
[2017-01-07] MEDS ORDERED: LAMICTAL25 PO (21:24)
[2017-01-07] MEDS ORDERED: VENTOLIN HFA INH (21:25)
[2017-01-07] MEDS ORDERED: FISH-EPA1000 MG PO (21:25)
[2017-01-07] MEDS ORDERED: GLUCOPHAGE1000 MG PO (21:25)
[2017-01-07] MEDS ORDERED: NEXIUM40 PO (21:26)
[2017-01-07] MEDS ORDERED: NYSTATPOW TOP (21:26)
[2017-01-07] MEDS ORDERED: HUMULIN500CONC SC ×2 (21:27→21:28)
[2017-01-07] MEDS ORDERED: KLOR-CON 1010 MEQ PO (21:28)
[2017-01-07] MEDS ORDERED: NITROSTAT0.4 MG SL (21:29)
[2017-01-07] MEDS ORDERED: METHOC500B PO (21:29)
[2017-01-07] MEDS ORDERED: COMBIVENT RESPIM4 GM INH (21:30)
[2017-01-07] MEDS ORDERED: ASAB PO (21:31)
[2017-01-07] MEDS ORDERED: KLONO2 PO (21:33)
== END 2016-09-22 13:37 | DRG 291 ==
LOC: ER 15:22 → IMCU 09-19 00:46 → 5SO 09-20 14:36
PROVIDERS: Hospitalist; Internal Medicine Pulmonary Disease; Physician Assistant
DX: I50.33 Acute on chronic diastolic (congestive) heart failure (principal); J96.02 Acute respiratory failure with hypercapnia; I27.81 Cor pulmonale (chronic); E87.3 Alkalosis; E66.2 Morbid (severe) obesity with alveolar hypoventilation; Z68.42 Body mass index [BMI] 45.0-49.9, adult; E11.65 Type 2 diabetes mellitus with hyperglycemia; I11.0 Hypertensive heart disease with heart failure; Z79.82 Long term (current) use of aspirin; Z79.4 Long term (current) use of insulin; I25.10 Atherosclerotic heart disease of native coronary artery without angina pectoris; Z95.5 Presence of coronary angioplasty implant and graft; F31.9 Bipolar disorder, unspecified; G89.4 Chronic pain syndrome
CPT/HCPCS: 36600; 70450; 71010; 71275; 74176; 80048; 82009; 82330; 82803; 82805; 82947; 82962; 83605; 83735; 83880; 84100; 84132; 84145; 84295; 84443; 84484; 85014; 85025; 85610; 85730; 87040; 87493; 87493-59; 87641; 93005; 94640; 94660; 96374; 96375; 97161-GP; 99291; A9270-GY; G8978-CK-GP; G8979-CJ-GP; J0360; J1120; J2405; J3010; Q9967

== ENCOUNTER 2016-09-25 13:26 | Emergency (ER) | payer MEDICARE, OTHER ==
[2016-09-25 13:10] LABS: BASOPHILS 0.5 %; BASOPHILS ABSOLUTE 0.03 10/3/uL (0.0-0.16); EOSINOPHILS 4.1 %; EOSINOPHILS ABSOLUTE 0.27 10/3/uL (0.0-0.53); HEMOGLOBIN 11.3 g/dL (13.6-17.8); IMMATURE GRANULOCYTES 0.6 %; IMMATURE GRANULOCYTES ABSOLUTE 0.04 10/3/uL (0.0-0.11); LYMPHOCYTES ABSOLUTE 1.19 10/3/uL (0.67-4.30); MANUAL DIFF NO %; MEAN CORPUS HGB CONC 31.4 g/dL (32.0-36.0); MEAN CORPUSCULAR HEMOGLOB 27.5 pg (26.0-34.0); MEAN CORPUSCULAR VOLUME 87.6 fL (80-100); MONOCYTES 8.8 %; MONOCYTES ABSOLUTE 0.58 10/3/uL (0.21-1.20); NEUTROPHILS ABSOLUTE 4.51 10/3/uL (2.02-8.40); PLATELET COUNT 202 10/3/uL (150-400); RBC DISTRIBUTION WIDTH 15.9 % (12.0-16.0); RED CELL COUNT 4.11 10/6/uL (4.7-6.1); WHITE BLOOD CELLS 6.6 10/3/uL (4.5-10.5)
[2016-09-25 13:18] LABS: PROTIME (NOT ORD) 13.3 SEC (12.0-14.5)
[2016-09-25 13:20] LABS: PARTIAL THROMBO TIME 22.9 SEC (22.5-37.2)
[2016-09-25 13:25] LABS: BUN (BLOOD UREA NITROGEN) 31 MG/DL (6-23); CALCIUM, SERUM 8.8 MG/DL (8.5-10.4); CHEST PAIN PROFILE TAT 0 Hrs 21 Mins; CHLORIDE, SERUM 95 MMOL/L (96-112); CO2 (CARBON DIOXIDE) 38 MMOL/L (24-34); CREATININE 1.37 MG/DL (0.70-1.30); GFR AFRICAN AMERICAN 65 ML/MIN (>=60); GFR NON AFRICAN AMERICAN 56 ML/MIN (>=60); GLUCOSE, SERUM 232 MG/DL (60-99); SODIUM, SERUM 138 MMOL/L (135-148); TROPONIN I <0.02 NG/ML (<0.05)
[~2016-09-25 13:26] MED LIST changes: +COMBIVENT RESPIM4 GM INH; +FISH OIL OTC PO; +TRAZ50 PO
[2016-12-29] MEDS ORDERED: KLONO1 PO (18:29)
[2016-12-29] MEDS ORDERED: LIOR10 PO (18:29)
[2016-12-29] MEDS ORDERED: ASAB PO (18:29)
[2016-12-29] MEDS ORDERED: COMBIVENT RESPIM4 GM INH (18:30)
[2016-12-29] MEDS ORDERED: L40 PO (18:31)
[2016-12-29] MEDS ORDERED: NEUR300 PO (18:31)
[2016-12-29] MEDS ORDERED: NEXIUM40 PO (18:31)
[2016-12-29] MEDS ORDERED: FERROUS SULF325 M1 PO (18:31)
[2016-12-29] MEDS ORDERED: HUMULIN500CONC SC ×2 (18:33→18:34)
[2016-12-29] MEDS ORDERED: LAMICTAL25 PO (18:36)
[2016-12-29] MEDS ORDERED: GLUCOPHAGE1000 MG PO (18:36)
[2016-12-29] MEDS ORDERED: NITROSTAT0.4 MG SL (18:37)
[2016-12-29] MEDS ORDERED: PERCOCET 10/3251 TAB PO (18:37)
[2016-12-29] MEDS ORDERED: MSCONTIN PO (18:37)
[2016-12-29] MEDS ORDERED: KDUR10 PO (18:37)
[2016-12-29] MEDS ORDERED: DIOVAN320 MG PO (18:38)
[2016-12-29] MEDS ORDERED: TRAZ100 PO (18:38)
[2016-12-29] MEDS ORDERED: CRESTOR20 MG PO (18:38)
[2016-12-29] MEDS ORDERED: METHOC500B PO (18:39)
[2016-12-30] MEDS ORDERED: VENTOLIN HFA INH (15:21)
[2017-01-07] MEDS ORDERED: NEUR600 PO (21:16)
[2017-01-07] MEDS ORDERED: DIOVAN320 MG PO (21:20)
[2017-01-07] MEDS ORDERED: TRAZ100 PO (21:20)
[2017-01-07] MEDS ORDERED: PAIN TOP (21:20)
[2017-01-07] MEDS ORDERED: MSCONTIN PO (21:21)
[2017-01-07] MEDS ORDERED: PERCOCET 10/3251 TAB PO (21:22)
[2017-01-07] MEDS ORDERED: FERROUS SULF325 M1 PO (21:23)
[2017-01-07] MEDS ORDERED: LIOR10 PO (21:23)
[2017-01-07] MEDS ORDERED: LAMICTAL25 PO (21:24)
[2017-01-07] MEDS ORDERED: L40 PO (21:24)
[2017-01-07] MEDS ORDERED: FISH-EPA1000 MG PO (21:25)
[2017-01-07] MEDS ORDERED: VENTOLIN HFA INH (21:25)
[2017-01-07] MEDS ORDERED: GLUCOPHAGE1000 MG PO (21:25)
[2017-01-07] MEDS ORDERED: NEXIUM40 PO (21:26)
[2017-01-07] MEDS ORDERED: NYSTATPOW TOP (21:26)
[2017-01-07] MEDS ORDERED: HUMULIN500CONC SC ×2 (21:27→21:28)
[2017-01-07] MEDS ORDERED: KLOR-CON 1010 MEQ PO (21:28)
[2017-01-07] MEDS ORDERED: METHOC500B PO (21:29)
[2017-01-07] MEDS ORDERED: NITROSTAT0.4 MG SL (21:29)
[2017-01-07] MEDS ORDERED: COMBIVENT RESPIM4 GM INH (21:30)
[2017-01-07] MEDS ORDERED: ASAB PO (21:31)
[2017-01-07] MEDS ORDERED: KLONO2 PO (21:33)
== END 2016-09-25 14:20 | disposition home or self-care (01) ==
LOC: ER 13:26
PROVIDERS: Emergency Medicine
DX: R07.9 Chest pain, unspecified (principal); N28.9 Disorder of kidney and ureter, unspecified; I11.0 Hypertensive heart disease with heart failure; I50.9 Heart failure, unspecified; E11.9 Type 2 diabetes mellitus without complications; Z95.5 Presence of coronary angioplasty implant and graft; Z79.899 Other long term (current) drug therapy; Z79.82 Long term (current) use of aspirin; Z79.4 Long term (current) use of insulin
CPT/HCPCS: 71010; 80048; 83735; 84484; 85025; 85610; 85730; 93005; 99285